=== PATIENT | female | born 1995 | race Caucasian/White ===

== ENCOUNTER → 2023-01-13 12:47 | Outpatient (BNVA) | payer OTHER, SELFPAY | PROVIDERS: Visit Provider Physician Assistant Medical | DX: S63.501A Unspecified sprain of right wrist, initial encounter (principal); X50.0XXA Overexertion from strenuous movement or load, initial encounter | CPT/HCPCS: 73110; 73130; 99203 ==

== ENCOUNTER → 2023-10-04 16:11 | Outpatient (BNVA) | payer OTHER, SELFPAY | PROVIDERS: Visit Provider Physician Assistant Medical | DX: S93.491A Sprain of other ligament of right ankle, initial encounter (principal); X50.1XXA Overexertion from prolonged static or awkward postures, initial encounter | CPT/HCPCS: 29515; 99203 ==

== ENCOUNTER → 2023-10-11 13:46 | Outpatient (BNVA) | payer OTHER, SELFPAY | PROVIDERS: Visit Provider Physician Assistant Medical | DX: S93.401D Sprain of unspecified ligament of right ankle, subsequent encounter (principal); X50.1XXD Overexertion from prolonged static or awkward postures, subsequent encounter | CPT/HCPCS: 99213 ==

== ENCOUNTER → 2024-11-21 12:12 | Outpatient (BNVA) | payer OTHER, SELFPAY | PROVIDERS: Visit Provider Physician Assistant Medical | DX: S06.0X0A Concussion without loss of consciousness, initial encounter (principal); S20.412A Abrasion of left back wall of thorax, initial encounter; S00.81XA Abrasion of other part of head, initial encounter; W50.0XXA Accidental hit or strike by another person, initial encounter; R11.2 Nausea with vomiting, unspecified; R51.9 Headache, unspecified; R42 Dizziness and giddiness; R53.83 Other fatigue | CPT/HCPCS: 70450; 99203 ==

== ENCOUNTER → 2024-11-23 10:51 | Outpatient (BNVA) | payer OTHER, SELFPAY | PROVIDERS: Visit Provider Physician Assistant Medical | DX: S06.0X0A Concussion without loss of consciousness, initial encounter (principal); S00.81XA Abrasion of other part of head, initial encounter; S20.412A Abrasion of left back wall of thorax, initial encounter; X50.0XXA Overexertion from strenuous movement or load, initial encounter | CPT/HCPCS: 99213 ==

== ENCOUNTER → 2024-11-28 13:35 | Outpatient (BNVA) | payer OTHER, SELFPAY | PROVIDERS: Visit Provider Physician Assistant Medical | DX: S06.0X0A Concussion without loss of consciousness, initial encounter (principal); S16.1XXA Strain of muscle, fascia and tendon at neck level, initial encounter; W50.0XXA Accidental hit or strike by another person, initial encounter | CPT/HCPCS: 99213 ==

== ENCOUNTER 2024-11-29 10:41 | Emergency (ER) | payer OTHER, SELFPAY ==
[2024-11-29 10:48] VITALS: BP 130/67; PULSE 52; RESP 18; TEMP 36.9; O2SAT 100; BMI 270.9
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
[2024-11-29 11:06] VITALS: BP 130/67; PULSE 52; RESP 18; TEMP 36.9; O2SAT 100
--- OUTSIDE RECORDS SUMMARY | 2024-11-29 12:33 | XMS_ITS | Encounter Summary ---
Author Organization [facility] Address [address] [place] [address] Care Team Providers Care Batch Plant Operator Name Role Phone Aditi Constantino DOCKETING SPECIALIST Primary Care Provider [phone] Encounter Details Date Type Department Care Team (Late st Contact Info) Description 02/07/2024 Scanned Document [facility] Department of Internal Medicine [address] [place] [phone] Aditi Constantino, TONIE [address] [place] [address] Social History Tobacco Use Types Packs/Day Years Used Date Smoking Tobacco: Never Assessed PHQ-2 Answer Date Recorded PHQ-2 Total Score 3 08/23/2023 Sex and Gender Information Value Date Recorded Sex Assigned at Female 08/26/2023 9:29 AM EDT Gender Identity Not on file Sexual Orientation Not on file documented as of this encounter Plan of Treatment Not on file documented as of this encounter Visit Diagnoses Not on filedocumented in this encounter Care Teams Batch Plant Operator Relationship Specialty Start Date End Date Aditi Constantino, TONIE [address] [place] [address] PCP - General 11/17/22 documented as of this encounter
--- OUTSIDE RECORDS SUMMARY | 2024-11-29 12:33 | XMS_ITS | Encounter Summary ---
Author Organization [facility] Address [address] [place] [address] Care Team Providers Care Field Research Assistant Name Role Phone Aditi Constantino APRN Primary Care Provider [phone] Reason for Visit * Reason Comments Medication Refill Encounter Details Date Type Department Care Team (Late st Contact Info) Description 11/15/2024 Refill [facility] Department of Internal Medicine [place] [address] [facility] [address] [place] [address] Aditi Constantino APRN [address] [place] [address] Moderate episode of recurrent major depressive disorder (HCC) Social History Tobacco Use Types Packs/Day Years Used Date Smoking Tobacco: Never Smokeless Tobacco: Never Alcohol Use Standard Drinks/Week Comments Never 0 (1 standard drink = 0.6 oz pur e alcohol) PHQ-2 Answer Date Recorded PHQ-2 Total Score 6 09/04/2024 Sex and Gender Information Value Date Recorded Sex Assigned at Female 08/26/2023 9:29 AM EDT Gender Identity Not on file Sexual Orientation Not on file documented as of this encounter Plan of Treatment Not on file documented as of this encounter Visit Diagnoses Diagnosis Moderate episode of recurrent major depressive disorder (HCC) documented in this encounter Care Teams Field Research Assistant Relationship Specialty Start Date End Date Aditi Constantino APRN [address] [place] [address] PCP - General 11/17/22 documented as of this encounter
--- OUTSIDE RECORDS SUMMARY | 2024-11-29 12:33 | XMS_ITS | Encounter Summary ---
Author Organization [facility] Address [address] [place] [address] Care Team Providers Care Club Manager Name Role Phone Aditi Constantino APRN Primary Care Provider [phone] Encounter Details Date Type Department Care Team (Late st Contact Info) Description 08/26/2023 10:29 AM EDT Hospital Encounter [facility] [address] [place] [phone] Dave Jordan MD [address] [place] [address] Social History Tobacco Use Types Packs/Day Years [...] 08/26/2023 10:40 AM EDT Lateral ankle swelling. ??No fracture or malalignment. Narrative 08/26/2023 10:40 AM EDT AP, lateral, and oblique views of the ankle were obtained. ??No prior studies for comparison. HISTORY: ??right ankle tenderness med/lat, hx of fracture FINDINGS: ??There is lateral swelling. ??No evidence of fracture. ??The mortise is intact. ??Soft tissues are unremarkable. Procedure Note Heath Lynn MD - 08/26/2023 AP, lateral, and oblique views of the ankle were obtained. No priorstudies for comparison. HISTORY: right ankle tenderness med/lat, hx of fracture FINDINGS: There is lateral swelling. No evidence of fracture. Themortise is intact. Soft tissues are unremarkable. IMPRESSION: Lateral ankle swelling. No fracture or malalignment. Omar MORALES DIAGNOSTIC IMAGI NG ORDERABLES documented in this encounter Visit Diagnoses Not on filedocumented in this encounter Care Teams Club Manager Relationship Specialty Start Date End Date Aditi Constantino, CHEMIST PHARMACEUTICAL [address] [place] [address] PCP - General 11/17/22 documented as of this encounter
--- OUTSIDE RECORDS SUMMARY | 2024-11-29 12:33 | XMS_ITS | Data Portability ---
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 Lab culture, urine 2019 020 [facility], [address] [place] [address], [id number] 0 08:50:41 bacterial vaginosis + vaginitis panel, vaginal 2019 020 [facility], [address] [place] [address], [id number] 0 12:40:35 CT + NG DNA, PCR, unspecified specimen 2019 020 [facility], [address] [place] [address], [id number] 0 15:37:37 toxicology screen, urine 2019 020 [email or web address] In-Office Order, Internal Use Only DO Not Attach Compendium DO Not Attach Compendium, Do Not Delete/merge, [id number] 11:13:51 toxicology screen, urine 2019 020 [email or web address] In-Office Order, Internal Use Only DO Not Attach Compendium DO Not Attach Compendium, Do Not Delete/merge, [id number] 0 14:03:57 Referral None recorded. Procedures None recorded. Surgeries None recorded. Imaging None recorded. Medication Orders None recorded. Patient TargetsNo targets recorded. Patient InstructionsNo instructions recorded. Reason for Referral None Reported. Results Created Date Observation Date Name Description Value Unit Range Abnormal Flag Note LastModifiedBy Organization Detail LastModifiedTime 01/16/2001/16/2020 toxic ology scree n, urine Marijuana (THC) negati ve Not Available In-Office Order Internal Use Only DO Not Attach Compendium DO Not Attach Compendium, Do Not Delete/merge, 01/16/2020 13:57:48 01/16/2001/16/2020 toxic ology scree n, urine Cocaine (GILLIAN 300) negati ve Not Available In-Office Order Internal Use Only DO Not Attach Compendium DO Not Attach Compendium, Do Not Delete/merge, 01/16/2020 13:57:48 01/16/2001/16/2020 toxic ology scree n, urine Opiates (MOP) negati ve Not Available In-Office Order Internal Use Only DO Not Attach Compendium DO Not Attach Compendium, Do Not Delete/merge, 01/16/2020 13:57:48 01/16/2001/16/2020 toxic ology scree n, urine Amphetamine (AMP) negati ve Not Available In-Office Order Internal Use Only DO Not Attach Compendium DO Not Attach Compendium, Do Not Delete/merge, 01/16/2020 13:57:48 01/16/20 20 01/16/2020 toxic ology scree n, urine Methamphetam ine (MET) negati ve Not Available In-Office Order Internal Use Only DO Not Attach Compendium DO Not Attach Compendium, Do Not Delete/merge, 01/16/2020 13:57:48 01/16/20 20 01/16/2020 toxic ology scree n, urine Barbiturates (BAR) negati ve Not Available In-Office Order Internal Use Only DO Not Attach Compendium DO Not Attach Compendium, Do Not Delete/merge, 01/16/2020 13:57:48 01/16/20 20 01/16/2020 toxic ology scree n, urine Benzodiazepi sonia (BZO) negati ve Not Available In-Office Order Internal Use Only DO Not Attach Compendium DO Not Attach Compendium, Do Not Delete/merge, [id number] 01/16/2020 13:57:48 01/16/20 20 01/16/2020 toxic ology scree n, urine Methylenedio xymethamphet amine (MDMA ? Ecstasy) negati ve Not Available In-Office Order Internal Use Only DO Not Attach Compendium DO Not Attach Compendium, Do Not Delete/merge, [id number] 01/16/2020 13:57:48 01/16/20 20 01/16/2020 toxic ology scree n, urine Methadone (MTD) negati ve Not Available In-Office Order Internal Use Only DO Not Attach Compendium DO Not Attach Compendium, Do Not Delete/merge, [id number] 01/16/2020 13:57:48 01/16/20 20 01/16/2020 toxic ology scree n, urine Oxycodone (OXY) negati ve Not Available In-Office Order Internal Use Only DO Not Attach Compendium DO Not Attach Compendium, Do Not Delete/merge, [id number] 01/16/2020 13:57:48 01/16/20 20 01/16/2020 toxic ology scree n, urine Phencyclidin e (PCP) negati ve Not Available In-Office Order Internal Use Only DO Not Attach Compendium DO Not Attach Compendium, Do Not Delete/merge, 01/16/2020 13:57:48 01/16/20 20 01/16/2020 toxic ology scree n, urine Tricyclic Antidepressa nts (TCA) negati ve Not Available In-Office Order Internal Use Only DO Not Attach Compendium DO Not Attach Compendium, Do Not Delete/merge, [id number] 01/16/2020 13:57:48 12/19/19 20 12/19/2019 toxic ology scree n, urine Marijuana (THC) negati ve Not Available In-Office Order Internal Use Only DO Not Attach Compendium DO Not Attach Compendium, Do Not Delete/merge, [id number] 12/19/2019 11:34:34 12/19/1912/19/2019 toxic ology scree n, urine Cocaine (GILLIAN 300) negati ve Not Available In-Office Order Internal Use Only DO Not Attach Compendium DO Not Attach Compendium, Do Not Delete/merge, 12/19/2019 11:34:34 12/19/19 20 12/19/2019 toxic ology scree n, urine Opiates (MOP) negati ve Not Available In-Office Order Internal Use Only DO Not Attach Compendium DO Not Attach Compendium, Do Not Delete/merge, 12/19/2019 11:34:34 12/19/19 20 12/19/2019 toxic ology scree n, urine Amphetamine (AMP) negati ve Not Available In-Office Order Internal Use Only DO Not Attach Compendium DO Not Attach Compendium, Do Not Delete/merge, 12/19/2019 11:34:34 12/19/1912/19/2019 toxic ology scree n, urine Methamphetam ine (MET) negati ve Not Available In-Office Order Internal Use Only DO Not Attach Compendium DO Not Attach Compendium, Do Not Delete/merge, 12/19/2019 11:34:34 12/19/1912/19/2019 toxic ology scree n, urine Barbiturates (BAR) negati ve Not Available In-Office Order Internal Use Only DO Not Attach Compendium DO Not Attach Compendium, Do Not Delete/merge, 12/19/2019 11:34:34 12/19/1912/19/2019 toxic ology scree n, urine Benzodiazepi sonia (BZO) negati ve Not Available In-Office Order Internal Use Only DO Not Attach Compendium DO Not Attach Compendium, Do Not Delete/merge, 12/19/2019 11:34:34 12/19/1912/19/2019 toxic ology scree n, urine Methylenedio xymethamphet amine (MDMA ? Ecstasy) negati ve Not Available In-Office Order Internal Use Only DO Not Attach Compendium DO Not Attach Compendium, Do Not Delete/merge, 12/19/2019 11:34:34 12/19/19 20 12/19/2019 toxic ology scree n, urine Methadone (MTD) negati ve Not Available In-Office Order Internal Use Only DO Not Attach Compendium DO Not Attach Compendium, Do Not Delete/merge, [id number] 12/19/2019 11:34:34 12/19/19 20 12/19/2019 toxic ology scree n, urine Oxycodone (OXY) negati ve Not Available In-Office Order Internal Use Only DO Not Attach Compendium DO Not Attach Compendium, Do Not Delete/merge, [id number] 12/19/2019 11:34:34 12/19/1912/19/2019 toxic ology scree n, urine Phencyclidin e (PCP) negati ve Not Available In-Office Order Internal Use Only DO Not Attach Compendium DO Not Attach Compendium, Do Not Delete/merge, [id number] 12/19/2019 11:34:34 12/19/1912/19/2019 toxic ology scree n, urine Tricyclic Antidepressa nts (TCA) negati ve Not Available In-Office Order Internal Use Only DO Not Attach Compendium DO Not Attach Compendium, Do Not Delete/merge, [id number] 12/19/2019 11:34:34 11/30/1912/04/2019 toxic ology scree n, urine Marijuana (THC) negati ve Not Available In-Office Order Internal Use Only DO Not Attach Compendium DO Not Attach Compendium, Do Not Delete/merge, [id number] 11/30/2019 09:56:50 11/30/1912/04/2019 toxic ology scree n, urine Cocaine (GILLIAN 300) negati ve Not Available In-Office Order Internal Use Only DO Not Attach Compendium DO Not Attach Compendium, Do Not Delete/merge, [id number] 11/30/2019 09:56:50 11/30/1912/04/2019 toxic ology scree n, urine Opiates (MOP) negati ve Not Available In-Office Order Internal Use Only DO Not Attach Compendium DO Not Attach Compendium, Do Not Delete/merge, 11/30/2019 09:56:50 11/30/1912/04/2019 toxic ology scree n, urine Amphetamine (AMP) negati ve Not Available In-Office Order Internal Use Only DO Not Attach Compendium DO Not Attach Compendium, Do Not Delete/merge, 11/30/2019 09:56:50 11/30/1912/04/2019 toxic ology scree n, urine Methamphetam ine (MET) negati ve Not Available In-Office Order Internal Use Only DO Not Attach Compendium DO Not Attach Compendium, Do Not Delete/merge, 11/30/2019 09:56:50 11/30/1912/04/2019 toxic ology scree n, urine Barbiturates (BAR) negati ve Not Available In-Office Order Internal Use Only DO Not Attach Compendium DO Not Attach Compendium, Do Not Delete/merge, 11/30/2019 09:56:50 11/30/1912/04/2019 toxic ology scree n, urine Benzodiazepi sonia (BZO) negati ve Not Available In-Office Order Internal Use Only DO Not Attach Compendium DO Not Attach Compendium, Do Not Delete/merge, 11/30/2019 09:56:50 11/30/1912/04/2019 toxic ology scree n, urine Methylenedio xymethamphet amine (MDMA ? Ecstasy) negati ve Not Available In-Office Order Internal Use Only DO Not Attach Compendium DO Not Attach Compendium, Do Not Delete/merge, 11/30/2019 09:56:50 11/30/1912/04/2019 toxic ology scree n, urine Methadone (MTD) negati ve Not Available In-Office Order Internal Use Only DO Not Attach Compendium DO Not Attach Compendium, Do Not Delete/merge, 11/30/2019 09:56:50 11/30/1912/04/2019 toxic ology scree n, urine Oxycodone (OXY) negati ve Not Available In-Office Order Internal Use Only DO Not Attach Compendium DO Not Attach Compendium, Do Not Delete/merge, 11/30/2019 09:56:50 11/30/1912/04/2019 toxic ology scree n, urine Phencyclidin e (PCP) negati ve Not Available In-Office Order Internal Use Only DO Not Attach Compendium DO Not Attach Compendium, Do Not Delete/merge, [id number] 11/30/2019 09:56:50 11/30/19 20 12/04/2019 toxic ology scree n, urine Tricyclic Antidepressa nts (TCA) negati ve Not Available In-Office Order Internal Use Only DO Not Attach Compendium DO Not Attach Compendium, Do Not Delete/merge, [id number] 11/30/2019 09:56:50 01/02/20 20 01/03/2020 [place] [address] 9 alcohol metabolites NEGATI VE NG/mL <500 normal See Note 1 Not Available [facility] [address], [address], 01/03/2020 13:49:39 01/02/20 20 01/03/2020 cp 15929 9 comment See Note 2 Not Available [facility] [address], [address], 01/03/2020 13:49:39 01/02/20 20 01/03/2020 cp 67373 9 amphetamines NEGATI VE NG/mL <500 normal Not Available [facility] [address], [address], 01/03/2020 13:49:39 01/02/20 20 01/03/2020 cp 10307 9 barbiturates NEGATI VE NG/mL <300 normal Not Available [facility] [address], [address], 01/03/2020 13:49:39 01/02/20 20 01/03/2020 cp 10354 9 benzodiazepi sonia NEGATI VE NG/mL <100 normal Not Available [facility] [address], [address], 01/03/2020 13:49:39 01/02/20 20 01/03/2020 cp 27121 9 cocaine metabolite NEGATI VE NG/mL <150 normal Not Available [facility] [place] [facility] [address], [place], [address], 01/03/2020 13:49:39 01/02/20 20 01/03/2020 cp 19438 9 marijuana metabolite 20 NEGATI VE NG/mL <20 normal Not Available [facility] [place] [facility] [address], [place], [address], 01/03/2020 13:49:39 01/02/20 20 01/03/2020 cp 02411 9 methadone metabolite NEGATI VE NG/mL <100 normal Not Available [facility] [place] [facility] [address], [place], [address], 01/03/2020 13:49:39 01/02/20 20 01/03/2020 cp 84617 9 opiates POSITI VE NG/mL <100 abnormal Not Available [facility] [place] [facility] [address], [place], [address], 01/03/2020 13:49:39 01/02/20 20 01/03/2020 cp 21274 9 oxycodone NEGATI VE NG/mL <100 normal Not Available [facility] [place] [facility] [address], [place], [address], 01/03/2020 13:49:39 01/02/20 20 01/03/2020 cp 59336 9 phencyclidin e NEGATI VE NG/mL <25 normal Not Available [facility] [place] [facility] [address], [place], [address], 01/03/2020 13:49:39 01/02/20 20 01/03/2020 cp 55284 9 comment See Note 3 Not Available [facility] [place] [facility] [address], [place], [address], 01/03/2020 13:49:39 01/02/20 20 01/03/2020 cp 91067 9 propoxyphene NEGATI VE NG/mL <300 normal Not Available [facility] [place] [facility] [address], [place], [address], 01/03/2020 13:49:39 01/02/20 20 01/03/2020 cp 58417 9 comment See Note 2 Note 1 This test was devel oped and its andrea tical perfo rmanc e jannette cteri stics have been deter mined by [facility]. It has not been clear ed or appro vidal by the FDA. This assay has been valid ated pursu ant to the CLIA regul ation s and is used for clini flor purpo ses. Note 2 This drug testi ng is for medic al treat ment only. Andrea sis was perfo rmed as non-f orens ic testi ng and these resul ts shoul d be used only by healt hcare provi ders to rende r diagn osis or treat ment, or to monit or progr ess of medic al condi tions . For zeb tance with inter preti ng these drug resul ts, pleas e conta ct a [facility] Toxic ology Speci alist : -R X TOX [phone] ), M-F, 8am-6 pm EST. Note 3 This drug testi ng is for medic al treat ment only. The resul ts are presu mptiv e; based only on scree isaiah metho ds, and they have not been confi rmed by a defin itive metho d. Andrea sis was perfo rmed as non-f orens ic testi ng and these resul ts shoul d be used only by healt hcare provi ders to rende r diagn osis or treat ment, or to monit or progr ess of medic al condi tions . For zeb tance with inter preti ng these drug resul ts, pleas e conta ct a [facility] Toxic ology Speci alist : --R X TOX [phone] ), M-F, 8am-6 pm EST. Not Available [facility] [place] [facility] [address], [place], [place], [address], 01/03/2020 13:49:39 01/02/20 20 01/02/2020 toxic ology scree n, urine Marijuana (THC) negati ve Not Available In-Office Order Internal Use Only DO Not Attach Compendium DO Not Attach Compendium, Do Not Delete/merge, 01/02/2020 07:54:06 01/02/20 20 01/02/2020 toxic ology scree n, urine Cocaine (GILLIAN 300) negati ve Not Available In-Office Order Internal Use Only DO Not Attach Compendium DO Not Attach Compendium, Do Not Delete/merge, 01/02/2020 07:54:06 01/02/20 20 01/02/2020 toxic ology scree n, urine Opiates (MOP) positi ve Not Available In-Office Order Internal Use Only DO Not Attach Compendium DO Not Attach Compendium, Do Not Delete/merge, 01/02/2020 07:54:06 01/02/20 20 01/02/2020 toxic ology scree n, urine Amphetamine (AMP) negati ve Not Available In-Office Order Internal Use Only DO Not Attach Compendium DO Not Attach Compendium, Do Not Delete/merge, 01/02/2020 07:54:06 01/02/20 20 01/02/2020 toxic ology scree n, urine Methamphetam ine (MET) negati ve Not Available In-Office Order Internal Use Only DO Not Attach Compendium DO Not Attach Compendium, Do Not Delete/merge, 01/02/2020 07:54:06 01/02/20 20 01/02/2020 toxic ology scree n, urine Barbiturates (BAR) negati ve Not Available In-Office Order Internal Use Only DO Not Attach Compendium DO Not Attach Compendium, Do Not Delete/merge, 01/02/2020 07:54:06 01/02/20 20 01/02/2020 toxic ology scree n, urine Benzodiazepi sonia (BZO) negati ve Not Available In-Office Order Internal Use Only DO Not Attach Compendium DO Not Attach Compendium, Do Not Delete/merge, [id number] 01/02/2020 07:54:06 01/02/20 20 01/02/2020 toxic ology scree n, urine Methylenedio xymethamphet amine (MDMA ? Ecstasy) negati ve Not Available In-Office Order Internal Use Only DO Not Attach Compendium DO Not Attach Compendium, Do Not Delete/merge, [id number] 01/02/2020 07:54:06 01/02/20 20 01/02/2020 toxic ology scree n, urine Methadone (MTD) negati ve Not Available In-Office Order Internal Use Only DO Not Attach Compendium DO Not Attach Compendium, Do Not Delete/merge, [id number] 01/02/2020 07:54:06 01/02/20 20 01/02/2020 toxic ology scree n, urine Oxycodone (OXY) negati ve Not Available In-Office Order Internal Use Only DO Not Attach Compendium DO Not Attach Compendium, Do Not Delete/merge, [id number] 01/02/2020 07:54:06 01/02/20 20 01/02/2020 toxic ology scree n, urine Phencyclidin e (PCP) negati ve Not Available In-Office Order Internal Use Only DO Not Attach Compendium DO Not Attach Compendium, Do Not Delete/merge, [id number] 01/02/2020 07:54:06 01/02/20 20 01/02/2020 toxic ology scree n, urine Tricyclic Antidepressa nts (TCA) negati ve Not Available In-Office Order Internal Use Only DO Not Attach Compendium DO Not Attach Compendium, Do Not Delete/merge, [id number] 01/02/2020 07:54:06 01/03/20 20 01/03/2020 strep tococ cus group B DNA group B strep DNA PCR Negati ve negati ve Not Available [facility] [address] [place], [address] 01/04/2020 11:09:43 01/03/20 20 01/03/2020 strep tococ cus group B DNA group B strep source Vagina l CDC recom mends colle ction of a vagin al/re ctal speci men for optim al detec tion of Group B Strep tococ cus virgil ers. Not Available [facility] [address] [place], [address] 01/04/2020 11:09:43 01/04/20 20 01/04/2020 bacte rial vagin osis + vagin itis panel , vagin al gardnerella Negati ve negati ve Not Available [facility] [address] [place] [address], [id number] 01/05/2020 12:40:35 01/04/20 20 01/04/2020 bacte rial vagin osis + vagin itis panel , vagin al trichomonas Negati ve negati ve Not Available [facility] [address] [place] [address], [id number] 01/05/2020 12:40:35 01/04/20 20 01/04/2020 bacte rial vagin osis + vagin itis panel , vagin al rony Negati ve negati ve Not Available [facility] [address] [place] [address], [address] 01/05/2020 12:40:35 01/04/20 20 01/04/2020 CT + NG DNA, PCR, unspe cifie d speci men neisseria gonorrhoeae RNA, tma Negati ve negati ve Not Available [facility] [address] [place] [address], [id number] 01/05/2020 15:37:37 01/04/20 20 01/04/2020 CT + NG DNA, PCR, unspe cifie d speci men chlamydia trachomatis RNA, tma Negati ve negati ve Not Available [facility] [address] [place], [address] 01/05/2020 15:37:37 01/04/20 20 01/04/2020 cultu re, urine urine source URINE, RANDOM Not Available [facility] [address] [place], [address] 01/06/2020 08:50:41 01/04/20 20 01/04/2020 cultu re, urine micro culture result 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 No furth er ident ifica tion will be perfo rmed. Not Available [facility] [address] [place], [address] 01/06/2020 08:50:41 01/09/20 20 01/09/2020 toxic ology scree n, urine Marijuana (THC) negati ve Not Available In-Office Order Internal Use Only DO Not Attach Compendium DO Not Attach Compendium, Do Not Delete/merge, [id number] 01/09/2020 10:38:01/09/20 20 01/09/2020 toxic ology scree n, urine Cocaine (GILLIAN 300) negati ve Not Available In-Office Order Internal Use Only DO Not Attach Compendium DO Not Attach Compendium, Do Not Delete/merge, 01/09/2020 10:38:01/09/20 20 01/09/2020 toxic ology scree n, urine Opiates (MOP) negati ve Not Available In-Office Order Internal Use Only DO Not Attach Compendium DO Not Attach Compendium, Do Not Delete/merge, 01/09/2020 10:38:01 01/09/20 20 01/09/2020 toxic ology scree n, urine Amphetamine (AMP) negati ve Not Available In-Office Order Internal Use Only DO Not Attach Compendium DO Not Attach Compendium, Do Not Delete/merge, 01/09/2020 10:38:01 01/09/20 20 01/09/2020 toxic ology scree n, urine Methamphetam ine (MET) negati ve Not Available In-Office Order Internal Use Only DO Not Attach Compendium DO Not Attach Compendium, Do Not Delete/merge, 01/09/2020 10:38:01 01/09/20 20 01/09/2020 toxic ology scree n, urine Barbiturates (BAR) negati ve Not Available In-Office Order Internal Use Only DO Not Attach Compendium DO Not Attach Compendium, Do Not Delete/merge, 01/09/2020 10:38:01 01/09/20 20 01/09/2020 toxic ology scree n, urine Benzodiazepi sonia (BZO) negati ve Not Available In-Office Order Internal Use Only DO Not Attach Compendium DO Not Attach Compendium, Do Not Delete/merge, [id number] 01/09/2020 10:38:01 01/09/20 20 01/09/2020 toxic ology scree n, urine Methylenedio xymethamphet amine (MDMA ? Ecstasy) negati ve Not Available In-Office Order Internal Use Only DO Not Attach Compendium DO Not Attach Compendium, Do Not Delete/merge, [id number] 01/09/2020 10:38:01 01/09/20 20 01/09/2020 toxic ology scree n, urine Methadone (MTD) negati ve Not Available In-Office Order Internal Use Only DO Not Attach Compendium DO Not Attach Compendium, Do Not Delete/merge, [id number] 01/09/2020 10:38:01 01/09/20 20 01/09/2020 toxic ology scree n, urine Oxycodone (OXY) negati ve Not Available In-Office Order Internal Use Only DO Not Attach Compendium DO Not Attach Compendium, Do Not Delete/merge, [id number] 01/09/2020 10:38:01 01/09/20 20 01/09/2020 toxic ology scree n, urine Phencyclidin e (PCP) negati ve Not Available In-Office Order Internal Use Only DO Not Attach Compendium DO Not Attach Compendium, Do Not Delete/merge, [id number] 01/09/2020 10:38:01 01/09/20 20 01/09/2020 toxic ology scree n, urine Tricyclic Antidepressa nts (TCA) negati ve Not Available In-Office Order Internal Use Only DO Not Attach Compendium DO Not Attach Compendium, Do Not Delete/merge, [id number] 01/09/2020 10:38:01 05/24/20 20 05/24/2020 blood group antib greta scree n, serum or plasm a bb patient history check Blood bank CT histor y review ed. Not Available [facility] [address] [place], [address] 05/25/2020 11:03:46 05/24/20 20 05/24/2020 blood group antib greta scree n, serum or plasm a blood type interpretati on A Not Available [facility] [address] [place], [address] 05/25/2020 11:03:46 05/24/20 20 05/24/2020 blood group antib greta scree n, serum or plasm a Rh interpretati on Positi ve Not Available [facility] [address] [place] [address], [address] 05/25/2020 11:03:46 05/24/20 20 05/24/2020 blood group antib greta scree n, serum or plasm a antibody screen interpretati on (T and S) Negati ve negati ve Not Available [address], [address] 05/25/2020 11:03:46 05/24/20 20 05/24/2020 beta- HCG, quant itati ve, serum or plasm a beta HCG, quantitative 519747 mIU/m L <5 high Not Available [facility] [address] [place] [address], [id number] 05/25/2020 11:03:48 08/03/20 22 08/03/2022 BETA HCG, QUANT ITATI VE beta HCG, quantitative 845 mIU/m L <5 high Not Available [facility] [address] [place] [address], 08/04/2022 14:55:58 08/03/20 22 08/03/2022 BB TYPE bb patient history check No previo us WHCT histor y. Not Available [facility] [address] [place] [address], [id number] 08/04/2022 14:56:01 08/03/20 22 08/03/2022 BB TYPE group interpretati on A Pos Not Available [facility] [address] [place], [address] 08/04/2022 14:56:01 08/03/20 22 08/03/2022 BB ANTIB GRETA SCREE N bb patient history check No previo us WHCT histor y. Not Available [facility] [address] [place], [address] 08/04/2022 14:56:02 08/03/20 22 08/03/2022 BB ANTIB GRETA SCREE N antibody screen interpretati on Negati ve negati ve Not Available [facility] [address] [place] [address], [address] 08/04/2022 14:56:02 01/04/20 20 01/04/2020 US, obste tric, follo w-up [place] [id number] [facility] [address] [place], [address], 01/05/2020 08:50:15 01/05/20 20 01/05/2020 US, obste tric, mater nal evalu ation + anato my No observ ation record ed. [email or web address] [address], [address], 01/07/2020 20:45:25 01/08/20 20 01/08/2020 US, obste tric, mater nal evalu ation + anato my No observ ation record ed. [email or web address], [address], 01/08/2020 13:09:22 01/08/20 20 01/08/2020 non-s tress test No observ ation record ed. [email or web address] (Department Of Radiology/Miya ging) [address] [place] [address], [address], 01/08/2020 15:26:27 01/09/20 20 01/08/2020 US, obste tric, amnio tic fluid index No observ ation record ed. [email or web address] [facility] [address] [place] [address], [address], 01/10/2020 08:32:48 01/09/20 20 01/08/2020 US, obste tric, amnio tic fluid index No observ ation record ed. [email or web address] Not Available 2019 08:34:44 01/11/20 20 01/11/2020 US, obste tric, follo w-up No observ ation record ed. [email or web address] [address], [address], 01/11/2020 17:53:31 01/15/20 20 01/15/2020 non-s tress test No observ ation record ed. [address], [address], 01/16/2020 09:33:20 01/18/20 20 01/18/2020 non-s tress test No observ ation record ed. [address], [address], 01/18/2020 15:41:43 01/22/20 20 01/22/2020 non-s tress test No observ ation record ed. [address], [address], 01/23/2020 12:18:42 05/31/20 20 05/31/2020 US, obste tric, follo w-up No observ ation record ed. [email or web address] [facility] [address], [place], [address], 06/04/2020 19:59:56 Result Notes None recorded. Problems Name Problem SNOMED Code Status Onset Date Resolution Date Notes Provider Name and Address Organization Details Recorded Time Asthma 621877317 Active 2018 sport induced asthma Jacquelyn bradley, [place] - [facility] 9 09:47:16 Vesicour eteric reflux 235896338 Active 2018 Jacquelyn bradley, [place] - [facility] 9 09:47:36 History of cannabis abuse 86368074077 9108 Completed Pt admits at IOB that she was smoking MJ prior to pregnanc y to assist w/ sleep. Pt aware of contrain dication s to use in pregnanc y, aware of plan for serial qtox. Pt states she is no longer smoking & does not intend further use. Pt denies use of any other substanc es. Qtox from IOB negative for propoxyp hene, EtOH, & all substanc es except marijuan a. Pt to have serial qtox over pregnanc y. Provider to review w/ pt at 2nd OB visit. (discuss ed probable serial qtox at IOB). CSD 07/26/19: reviewed with patient at visit today, she states she has stopped using MJ entirely , aware we will be checking serial QTOX. SCP . 07/26/19: QTOX negative other than continue d + for allyson betancourt, review next visit. SCP Jaclyn bradley, [place] - [facility] 0 11:57:13 History of kidney disease [id number] Completed Pt w/ h/o VUR, tx'd at 3 yo w/ ?bilater al ureteral reimplan tation at [facility] [place] [place]. Pt reports she has frequent UTI's/py lissy related to this. COnsider serial UCx vs other prophyla xis prn, will review w/ MFM. Jaclyn bradley, [place] - [facility] 0 11:57:13 Marginal insertio n of umbilica l cord [id number] Completed Noted with NT USN, patient has level II USN schedule d at [facility]. SCP: normal CI on USN 09/2019 Nl placenta l CI describe d on tri USN, [facility]. CSD Jaclyn bradley, [place] - [facility] 0 11:57:13 Oligohyd ramnios without rupture of membrane s [id number] Completed Seen at [facility] on 01/05 with c/o leaking. No rupture on multiple exams. ORESTES 4 and then 8 when MFM scanned her after PO fluid intake. Discharg ed from home. Will need follow up USN in office first week of JANUARY. TBF 01/08/20: Repeat USN shows ORESTES 5.6 cm. Reactive NST. TBF 01/11/20: patient again evaluate d at [facility] given concern for ? LOF and recently being followed for borderli ne (low normal) ORESTES. Joeemilie arturo, has never been official ly oligo with a formal USN. Speculum exam again negative for ROM. Reactive NTS. USN today by Dr. King with ORESTES of 8cm. Patient reassure d by MFM and by myself that clinical picture not c/w ROM or oligo at this time and no indicati on for delivery at this time. Will plan for NST/ORESTES on Wednesday01/15/20; even if normal fluid at that time will likely plan to continue weekly NST/ORESTES until delivery for patient reassura nce. SCP 3/5: ORESTES 7.8, repeat USN PRN Jaclyn Calvert null, [place] - [facility] 0 11:57:13 Problem Notes None recorded. Procedures Surgical History Date Name Laterality Status Provider Name and Address Organization Details Recorded Time 0 [id number] completed Jaclyn Shaikhalison [place] - [facility] 06/03/2020 13:24:12 9 [id number]-AAR completed Jaclyn Shaikhalison [place] - [facility] 11/06/2019 16:40:09 Unlisted px urinary system completed ROBIN GLORIA MD [address] [place] [address], [address] Floor, [place], [address], [place] - [facility] 06/28/2019 17:58:10 Imaging Results Imaging Date Name Status LastModified by Organiz ation Details LastModified Time 01/04/2020 US, obstetric, follow-up completed [address] [facility] [address] [place], [address], 01/05/2020 08:50:15 01/05/2020 US, obstetric, maternal evaluation + anatomy completed [email or web address], [address], 01/07/2020 20:45:25 01/08/2020 US, obstetric, maternal evaluation + anatomy completed [address], [address], 01/08/2020 13:09:22 01/08/2020 non-stress test completed [address] (Department Of Radiology/Wayne alex) [address] [place] [address], [address], 01/08/2020 15:26:27 01/08/2020 US, obstetric, amniotic fluid index completed [email or web address] [facility] [address] [place] [address], [address], 01/10/2020 08:32:48 01/08/2020 US, obstetric, amniotic fluid index completed [email or web address] Information not available 01/10/2020 08:34:44 01/11/2020 US, obstetric, follow-up completed [address], [address], 01/11/2020 17:53:31 01/15/2020 non-stress test completed [address], [address], 01/16/2020 09:33:20 01/18/2020 non-stress test completed [address], [address], 01/18/2020 15:41:43 01/22/2020 non-stress test completed [address], [address], 01/23/2020 12:18:42 05/31/2020 US, obstetric, follow-up completed [email or web address] [facility] [address], [place], [address], 06/04/2020 19:59:56 Procedure Notes None recorded. Medical Equipment None Reported. Allergies No known drug allergies Medications Name Sig Start Date Stop Date Status Note LastModified by Organization Details LastModified Time acetaminoph en 325 mg tablet Take 2 tablets every 6 hours by oral route. 01/30 completed Not Available Not Available Not Available fluconazole 150 mg tablet take 1 tablet po then repeat in 72 hrs 10/26 completed Not Available Not Available Not Available Cleocin 100 mg vaginal suppository Insert 1 supposito ry every day by vaginal route for 3 days. 10/26 completed Not Available Not Available Not Available Tamiflu 75 mg capsule 06/28 completed Not Available Not Available Not Available ondansetron 8 mg disintegrat ing tablet Place 1 tablet every 8 hours by transling ual route as needed. 11/06 completed Not Available Not Available Not Available ibuprofen 600 mg tablet Take 1 tablet 3 times a day by oral route. 01/30 completed Not Available Not Available Not Available ondansetron 4 mg disintegrat ing tablet 06/28 completed Not Available Not Available Not Available Diclegis 10 mg-10 mg tablet,rosemary yed release 2 tabs po at hs, if still nauseous day 3 add 1 tab in morning, if still symptomat ic day 4 add 1 tab in afternoon for a total of 4/ day 11/06 completed Not Available Not Available Not Available Vitamins Plus Low Iron 27 mg iron-1 mg tablet active Not Available Not Available Not Available Larissia 0.1 mg-20 mcg tablet 06/28 completed Not Available Not Available Not Available Vitals Date Recorded Body height Provider Name an d Address Organization Details Last Updated DateTime 01/04/2020 161.92 cm Lois Arenas [facility] 01/04/2020 11:46:29 Date Recorded Body mass index (BMI) Body weight Provider Name and Address Organization Details Last Updated DateTime 01/04/2020 33.9 kg/m2 32484.55353 g Lois Arenas [facility] 01/04/2020 11:51:10 Date Recorded Body weight Systolic blood pressure Diastolic blood pressure Provider Name and Address Organization Details Last Updated DateTime 01/09/2020 51861.2892 6 g 122 mm[Hg] 76 mm[Hg] Melia Steiner [facility] 01/09/2020 10:51:19 Date Recorded Body height Provider Name an d Address Organization Details Last Updated DateTime 01/16/2020 161.93 cm Radha Zendejas [facility] 01/16/2020 13:45:04 Date Recorded Body mass index (BMI) Body weight Provider Name and Address Organization Details Last Updated DateTime 01/16/2020 34.9 kg/m2 15080.41553 g Radha Zendejas [facility] 01/16/2020 13:46:09 Date Recorded Body height Provider Name an d Address Organization Details Last Updated DateTime 01/31/2020 161.93 cm Jaclyn Calvert [facility] 01/31/2020 11:54:43 Date Recorded Body mass index (BMI) Body weight Provider Name and Address Organization Details Last Updated DateTime 01/31/2020 33.6 kg/m2 64929.77021 g Jaclyn Shaikhalison [facility] 01/31/2020 11:57:13 Date Recorded Body height Provider Name an d Address Organization Details Last Updated DateTime 06/03/2020 161.93 cm Jaclyn Shaikhalison [facility] 06/03/2020 13:21:16 Date Recorded Body mass index (BMI) Body weight Provider Name and Address Organization Details Last Updated DateTime 06/03/2020 33.7 kg/m2 84857.51 g Jaclyn Shaikhalison [facility] 06/03/2020 13:21:41 Date Recorded Systolic blood pressure Diastolic blood pressure Provider Name and Address Organization Details Last Updated DateTime 01/04/2020 136 mm[Hg] 80 mm[Hg] Lois Dagoberto [facility] 01/04/2020 11:50:02 Date Recorded Systolic blood pressure Diastolic blood pressure Provider Name and Address Organization Details Last Updated DateTime 01/16/2020 118 mm[Hg] 72 mm[Hg] Radha Zendejas [facility] 01/16/2020 13:45:02 Date Recorded Systolic blood pressure Diastolic blood pressure Provider Name and Address Organization Details Last Updated DateTime 01/31/2020 126 mm[Hg] 84 mm[Hg] Jaclyn Enrike [facility] 01/31/2020 11:55:38 Date Recorded Systolic blood pressure Diastolic blood pressure Provider Name and Address Organization Details Last Updated DateTime 06/03/2020 120 mm[Hg] 78 mm[Hg] Jaclyn Enrike [facility] 06/03/2020 13:22:30 Social History Question Answer Notes LastModified by Organizat ion Details LastModified Time Tobacco Smoking Status Never Smoker Jacquelyn bradley [facility] 06/28/2019 09:48:17 What Is Your Level Of Alcohol Consumption? None Information not available 11/06/2019 Do You Reside In Or Have You Traveled To An Area Where Ebola Virus Transmission Is Active? No Information not available 11/06/2019 Does Your Partner Physically Hurt You Or Threaten To Hurt You? No [email or web address] Information not available 06/28/2019 Has Your Partner Forced You To Have Sex Or Perform Sex Acts When You Did Not Want To? No Information not available 06/28/2019 Does Your Partner Insult, Scream At Or Talk Down To You? No [email or web address] Information not available 06/28/2019 Does Your Partner Control You Or Any Part Of Your Life? No [email or web address] Information not available 06/28/2019 Are You Afraid Of Your Partner? No [email or web address] Information not available 06/28/2019 Drug Use? No Occ MJ Information no t available 06/03/2020 Do You Feel Safe At Home? Yes [email or web address] Information not available 06/28/2019 Have You Recently Traveled Abroad? No Information not available 12/26/2019 Do You Have Symptoms Associated With Zika Virus (fever, Rash, Joint Pain, Or Conjunctivitis)? No Information not available 11/06/2019 Have You Recently (within The Last 12 Weeks, Or During A Current ) Traveled To Or Lived In A Zika-affected Area? No [email or web address] Information not available 06/28/2019 Sex: Unknown Functional Status Question Answer Note LastModified by Organizat ion Details LastModified Time What is your exercise level? Occasional Information not available 11/06/2019 Mental Status None recorded. Family History Relationship Description Onset Age of this Age Resolved Age Notes LastModified by Organization Details LastModified Time Maternal Aunt Malignant tumor of breast M G Aunt [email or web address] Not available 06/28/2019 17:56:11 Maternal Grandfather Myocardial infarction [email or web address] Not available 06/09 17:56:23 Maternal Grandfather Hypertensive disorder [email or web address] Not available 06/28 17:56:31 Maternal Grandfather Diabetes mellitus [email or web address] Not available 06/28 17:56:38 Medical History Condition Response Other N *No Diseases or Conditions N Blood clots N Breast Cancer N Benign breast disease N Colon cancer N Lung Disease N Depression Y Defects or Inherited Disease N Anesthesia Complications N Headaches/Migraines N Have you ever been on isolation N Anxiety Disorder Y Arthritis N HSV N Infertility N Interstitial Cystitis N Abnormal pap N Acid Reflux (GERD) N Cancer N Stroke N Endometriosis N Fibromyalgia N Spina Bifida N HIV N Heart Problems N Sexual Dysfunction N Autoimmune disorder N Thyroid Problems N Kidney or Bladder Problems Y GI Problems N Eating Disorder N Anemia N Multiple Sclerosis N Psychiatric Illness N Diabetes N Ovarian Cancer N Blood Transfusions N Bladder disease N History of MRSA N Abnormal Uterine Bleeding N Hyperlipidemia N BrCa positive N Abuse/Domestic Violence N Diverticulitis N Asthma Y Hepatitis N Hypertension N Osteoporosis N Thrombophilias N Gynecological History Statement/Question Response Abnormal Pap N Benign Breast Disease N Infertility N Breast Biopsy N Date of LMP 03/31/2020 Breast Ultrasound N IPV Screen Done 06/03/2020 STIs/STDs N Sexual Orientation heterosexual Endometriosis N PID N Fibroids N Cervical Cancer N History of Endometrial Biopsy? N Uterine Cancer N Current Control Method Ovarian Cancer N Breast Cancer N Sexually Active? Y Sexual Problems? N Abnormal Uterine Bleeding Y Obstetrics History GPAL:G 3 P 1 0 1 1 Type Value Full Term 1 Induced 1 Living 1 Total 3 Immunizations Vaccine Type Date Status Note Provider Nam e and Address Organization Details Recorded Time Influenza, split virus, quadrivalent, PF 09/29/2019 completed Not Available [facility] 0 02:19:44 Tdap 12/04/2019 completed Maryan bradley, [place] - [facility] 12/04/2019 13:23:08 Past Encounters Encounter ID Performer Location Encounter Start Date Encounter Closed Date Diagnosis/Indication Diagnosis SNOMED-CT Code Diagnosis ICD10 Code Diagnosis Note [id number] ROBIN GLORIA MD [facility],[address] [place] [address] 06/28/2019 09:38:43 06/30/2019 08:53:33 Routine care 180236324 Z34.91 Z34.01 Z34.81 Has been having nausea and vomiting relieved by Diclegis use, no c/o PARRA/VB/Kyler a or /UTI sxs. Last pap was ~1 year ago. No hx of chicken pox, will check varicella. Plans Carrier screen/NIP S/NT/AFP. [employer] 24 yo presents w/ FOB for IOB. Pt w/ LMP unknown, had recent 1st tri USN at [facility] demonstrat ing viable IUP at 7 1/7 wks & establishi ng EDC= 0. Pt has had sx's of N/V since onset of , trying diet changes & use of Diclegis w/ some relief of sx's. Pt denies VB or current /UTI sx's except has noted some increased quantity of D/C. Pt reports no h/o EtOH or cigarette use. Pt states she does not use any street drugs except had been smoking marijuana to help her sleep prior to . Reviewed office policy. Reviewed antepartum testing w/ genetic carrier screening, cfDNA testing, & NT USN--pt wishes to do all. Reviewed travel history--p t & FOB deny recent travel (less than 1 yr ago) or plans for travel to areas w/ high risk of exposure to Zika; reviewed risks of Zika virus exposure, transmissi on in . Reviewed use of bug sprays w/ DEET. RTO 4 wks Gestation period, 9 weeks 885608 Z3A.09 Vaginitis 45573740 N76.0 [id number] YESICA CARIAS DO G5 [address] [place] [address] 07/26/2019 09:16:24 07/26/2019 15:55:15 Routine care 228106348 Z34.91 Doing well, no complaints . Reviewed all labs, USNs to date. Patient aware of + MJ with QTOX, negative Panorama and Horizon results, normal NT USN other than marginal cord insertion noted with this USN. Has level II USN scheduled at [facility] in August 2019. Lab slip given today for MSAFP, aware she needs to wait until 16 weeks. No recent or upcoming travel. [id number] ANGÉLICA FISHER MD [facility] [address] [place] [address] 09/29/2019 12:57:10 10/04/2019 08:01:01 Routine care 712761016 Z34.92 Gestation period, 22 weeks 17025053 Z3A.22 History of cannabis abuse 4704666745 [address] F12.10 Active or passive immunization 792864880 Z23 [id number] ROBIN GLORIA MD WH[facility] [address] [place] [address] 11/06/2019 16:19:15 11/13/2019 14:09:13 Routine care 105676136 Z34.91 Z34.01 Z34.81 Headaches: No Nausea: No Vomiting: No movement: Yes Contractio ns: No Urine sent for qtox. Pt notes + GFM & denies pain/ctxns . Pt denies current /UTI sx's. Pt does state she had scant pink-tinge d staining on ?underwear when in [place] on 11/01/19, no prior intercours e or exam. Pt has not had recurrence of sx's. Pt advised to observe, contact office if recurs. Reviewed results to date, including nl 3rd tri labs. Reviewed tdap, pt had last visit per her report (no documentat ion of this in chart)--re viewed indication s for close family members & FOB to have booster as well. PLEASE REVIEW TDAP W/ PT NEXT VISIT, NOT CLEAR SHE ACTUALLY RECEIVED THIS AT LAST VISIT. RTO 4 wks Gestation period, 28 weeks 68801399 Z3A.28 [id number] CASI ENCISO, DO G[address] [place] [address] 12/04/2019 13:03:01 12/05/2019 08:16:06 Routine care 253641865 Z34.91 Active or passive immunization 983050064 Z23 Gestation period, 32 weeks 5396239 Z3A.32 [id number] YESICA CARIAS, DO G5 [address] [place] [address] 12/19/2019 11:16:58 12/22/2019 13:06:10 Routine care 100994374 Z34.91 Doing well, no complaints . Good FM. QTOX today negative. s/p flu vaccine and TDAP at previous visits. Discussed GBS next visit, cervical checks beginning at 37 weeks. Has USN for EFW, position check scheduled at 36 weeks. [id number] AFSHIN STEWARD , DO G[address] [place] [address] 12/22/2019 11:32:59 12/25/2019 13:26:12 Routine care 179583623 Z34.03 OB Problem visit. Patient in the office reporting that she is having a difficult time continuing to work. 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 Would like to stop working. Reviewed course with patient. No OB concerns. Currently 34.4 wga. Safe at home and has no emotional concerns. Appears pleasant and understand ing today. Encouraged to work until full term. No reason to remove from work at THIS time however, can stop at 37 wga due to requiremen t of driving / extended travel. Routine PTL and FM Precaution s reviewed. Has follow up USN and OB visit scheduled. Encouraged to continue to work for the next 2+ weeks. Support provided. Gestation period, 34 weeks 35257496 Z3A.34 [id number] ANGÉLICA FISHER MD WHG5 [address] [place] [address] 12/26/2019 09:46:47 01/01/2020 09:49:30 Routine care 168540135 Z34.03 Gestation period, 35 weeks 66295665 Z3A.35 [id number] YESICA CARIAS DO [facility] [address] [place] [address] 01/02/2020 13:57:53 01/04/2020 16:55:28 Routine care 271547100 Z34.91 Doing well, no complaints . Good FM. GBS collected today. USN for EFW scheduled in 2 days in office. QTOX + for opiates today, patient denies use but states she has been eating a daily everything bagel with poppy seeds , will send for confirmato ry testing. [id number] YESICA CARIAS DO [facility] [address] [place] [address] 01/04/2020 11:36:17 01/04/2020 13:54:24 Routine care 986894333 Z34.91 Vaginitis 46824395 N76.0 Patient presents for OB problem visit. Notes trickle of fluid on her underwear on and off since last night. No obvious leaking of clear fluid, no soaking through underwear, no large gush, just spots on her underwear. No urinary symptoms. USN today with normal ORESTES. Urine dip with trace blood and protein, 3+ leuks. With exam, white/gree n mucous-lik e discharge noted in vault. No leaking fluid with cough. Neg fern/nitra zine/pooli ng. ? possible yeast. Affirm, GC/CL and urine culture all collected and sent today, await results. Patient to keep upcoming OB visit as scheduled. [id number] ANGÉLICA FISHER MD G[address] [facility] [place] [address] 01/09/2020 10:45:15 01/15/2020 13:21:11 Routine care 559703710 Z34.03 Gestation period, 37 weeks 04474089 Z3A.37 Drug of abuse screen 897 [address] Z02.83 [id number] YESICA CARIAS, DO [facility] [address] [facility] [place] [address] 01/16/2020 13:32:44 01/17/2020 13:52:45 Routine care 152439884 Z34.91 Doing well, no complaints . Good FM. Denies ctx, lof, vb. Had NST on Wednesday at [facility] with ORESTES 6.8cm. Plan to continue 2x weekly NST with ORESTES at [facility] until delivery (last NST report noted recommenda tion for once weekly ORESTES but given patient anxiety regarding fluid levels will continue 2x weekly fluid check at time of scheduled NSTs). Signs labor, ROM, movement precaution s reviewed. Negative QTOX today. [id number] AFSHIN STEWARD , [facility] [address] [facility] [place] [address] 01/31/2020 11:52:32 02/02/2020 09:04:47 Postoperative visit 395472381 Z09 Patient in the office for post operative incision check after pTLCS. She is doing well and has had no complicati ons since surgery. We reviewed the procedure in detail and discussed routine post op / post expectatio ns. No issues with pain control or bleeding. Denies headache, fever, chills, cp, sob. All questions answered. RTO for routine 6 week PPV. [id number] CASI ENCISO, DO [facility] [address] [facility] [place] [address] 06/03/2020 13:20:00 06/05/2020 08:14:44 test positive 566925251 Z32.01 Patient concerned because of the short duration of time in between her last delivery (01/23/2020 by Primary LTC/S) and this . I reviewed risk of uterine rupture with labor. Will do REPEAT LTC/S at 39wks. Will have GUILLERMINA/C-Sect ion Scar checked by USN periodical ly during 3rd Trimester. Total visit length 30 minutes of which at least 25 minutes was spent in face to face counseling and coordinati on of care. All questions were answered to the patient's satisfacti on. Health Concerns Section Related Observation LastModified by Organization Detai ls LastModified Time None Recorded Concern Status LastModified by Organization Details LastModified Time None Recorded Advance Directives Directive None Recorded Payers Encounter Date Sequence Insurance Name Policy Number Policy Leon Covered Member ID Leon Member ID Guarantor Name 01/04/2020 1 [place] Sunshine N Jordan [id number] Sunshine Jordan 01/09/2020 1 [place] Sunshine N Jordan [id number] Sunshine Jordan 01/16/2020 1 [place] Sunshine N Jordan [id number] Sunshine Jordan 01/31/2020 1 [place] Sunshine N Jordan [id number] Sunshine Jordan 06/03/2020 1 [place] Sunshine N Jordan [id number] Sunshine Jordan Notes Date Note Type Note Provider Name and Address Organization Details Recorded Time 01/16/2020 text/html YESICA CARIAS, DO [address] Floor, [place], [place], [id number], [facility] 01/16/2020 14:03:53 01/31/2020 text/html Pain well controlled. Only light spotting. NO headache, fever, chills, cp, sob. No emotional concerns at this time. AFSHIN STEWARD, DO [address], [address], [place], [address], [facility] 01/31/2020 12:05:35 06/03/2020 text/html Patient her with concerns of getting so quickly after last . CASI ENCISO, DO [address], [address], [place], [address], [facility] 06/03/2020 13:49:59 OBGyn Episode Ob Episode Information Episode Created Date Number of Fetuses Patient Bloodtype Patient rh Status Prepregnancy Weight lbs Domestic Partner Domestic Partner Phone Father Name Metal Bench Patternmaker Status 06/12/20 20 1 DELETED Fetus Data First Name Last Name Admitted to NICU Weight (g) Sex Living Outcome Pediatric Complications Fetus ID Race Codes Race Delivery Type [id number] Kelechi Calculation Initial Kelechi Date Initial Exam Date Initial Exam Provider Initial Ultrasound Date Last Menstrual Period Date Ultra Sound Weeks Gestation 01/06/2021 06/13/2020 05/31/2020 03/31/2020 0 Eighteen To Twenty Week Kelechi Update Ultra Sound Date Fundal Height At Umbil Quickening Date Ultra Sound Latest Weeks Gestation Final Kelechi Confirmed By Final Kelechi Confirmed Date Final Kelechi Date Ultra Sound Latest Days Gestation 0 01/05/20 21 0 Menstrual History Last Menstrual Date Menses Monthly On Bcp Conception Prior Menses Frequency Hcg Plus Date Menarche Onset Age 0503/31/2020 false Delivery Information Delivery Date Delivery Type Labor Anesthesia Weeks Gestation Incision Type Labor Labor Length Hrs Delivered By Post Complications Tubal Sterilization Discharge Date Comments Discharge Information Feeding Method Contraceptive Method Maternal HG B and HCT Levels Ob Episode Information Episode Created Date Number of Fetuses Patient Bloodtype Patient rh Status Prepregnancy Weight lbs Domestic Partner Domestic Partner Phone Father Name Metal Bench Patternmaker Status 06/19/20 19 1 A Positive 145 Ori Asher f CLOSED Fetus Data First Name Last Name Admitted to NICU Weight (g) Sex Living Outcome Pediatric Complications Fetus ID Race Codes Race Delivery Type [id number] 8 F [id number] - Primary Problems Problem Notes smoked MJ to help sleep, but D/C with POS PT/ NO HX of chicken pox/Caffeine also D/C with POS PT/ Cats at home, but will not change litter.01/03/20: OB USN @ 36w3d: Bennett IUP, + FH 139 bpm. Vertex. Anterior placenta. ORESTES 14.7cm. EFW 76% (6lbs 12 oz). SCP3/10: ORESTES 6.62, NST Reactive: recommend 2X week NST and weekly ORESTES: see phone note from : ORESTES 8.4, NST R Problem Name Start Date End Date Resolution Snomed Code Note Marginal insertion of umbilical cord [id number] Noted with NT USN, patient has level II USN scheduled at [facility]. SCP: normal CI on USN 09/2019Nl placental CI described on tri USN, [facility]. CSD Oligohydramnios without rupture of membranes [id number] Seen at [facility] on 01/05 with c/o leaking. No rupture on multiple exams. ORESTES 4 and then 8 when MFM scanned her after PO fluid intake. Discharged from home. Will need follow up USN in office first week of JANUARY. TBF 01/08/20: Repeat USN shows ORESTES 5.6 cm. Reactive NST. TBF 01/11/20: patient again evaluated at [facility] given concern for ? LOF and recently being followed for borderline (low normal) ORESTES. Technically, has never been officially oligo with a formal USN. Speculum exam again negative for ROM. Reactive NTS. USN today by Dr. King with ORESTES of 8cm. Patient reassured by MFM and by myself that clinical picture not c/w ROM or oligo at this time and no indication for delivery at this time. Will plan for NST/ORESTES on Wednesday01/15/20; even if normal fluid at that time will likely plan to continue weekly NST/ORESTES until delivery for patient reassurance. SCP 01/10: ORESTES 7.8, repeat USN PRN History of cannabis abuse [id number] Pt admits at IOB that she was smoking MJ prior to to assist w/ sleep. Pt aware of contraindications to use in , aware of plan for serial qtox. Pt states she is no longer smoking & does not intend further use. Pt denies use of any other substances.Qtox from IOB negative for propoxyphene, EtOH, & all substances except marijuana. Pt to have serial qtox over . Provider to review w/ pt at 2nd OB visit. (discussed probable serial qtox at IOB). CSD 07/26/19: reviewed with patient at visit today, she states she has stopped using MJ entirely, aware we will be checking serial QTOX. SCP . 07/26/19: QTOX negative other than continued + for marijuana, review next visit. SCP History of kidney disease [id number] Pt w/ h/o VUR, tx'd at 3 yo w/ ?bilateral ureteral reimplantation at [facility] [place] [place]. Pt reports she has frequent UTI's/pyelo related to this. COnsider serial UCx vs other prophylaxis prn, will review w/ MFM. Kelechi Calculation Initial Kelechi Date Initial Exam Date Initial Exam Provider Initial Ultrasound Date Last Menstrual Period Date Ultra Sound Weeks Gestation 01/29/2020 06/19/2019 06/13/2019 7 Eighteen To Twenty Week Kelechi Update Ultra Sound Date Fundal Height At Umbil Quickening Date Ultra Sound Latest Weeks Gestation Final Kelechi Confirmed By Final Kelechi Confirmed Date Final Kelechi Date Ultra Sound Latest Days Gestation 0 [email or web address] 06/19/2019 01/29/20 20 0 Pre- Flowsheet Flowsheet Date 06/28/2019 Farley Score Blood Edema Fundus Height Fundus Units Glucose Ketones Leukocytes Nitrite Labor Signs Protein Cervic Dilation Cervic Effacement Cervic Station neg none negative none Negative neg Type Weight in lbs Pre/Post Dialysis Refused Weight 150.496681115218 BP Diastolic BP Location Tested BP Systolic BP Type 76 128 Fetus Heart Rate Present Fetus Movement Comments Has been having nausea and v omiting relieved by Diclegis use, no c/o PARRA/VB/Edema or /UTI sxs. Last pap was ~1 year ago. No hx of chicken pox, will check varicella. Plans Carrier screen/NIPS/NT/AFP. SM LPN24 yo presents w/ FOB for IOB. Pt w/ LMP unknown, had recent 1st tri USN at [facility] demonstrating viable IUP at 7 1/7 wks & establishing EDC=01/29/20.Pt has had sx's of N/V since onset of , trying diet changes & use of Diclegis w/ some relief of sx's. Pt denies VB or current /UTI sx's except has noted some increased quantity of D/C.Pt reports no h/o EtOH or cigarette use. Pt states she does not use any street drugs except had been smoking marijuana to help her sleep prior to .Reviewed office policy. Reviewed antepartum testing w/ genetic carrier screening, cfDNA testing, & NT USN--pt wishes to do all. Reviewed travel history--pt & FOB deny recent travel (less than 1 yr ago) or plans for travel to areas w/ high risk of exposure to Zika; reviewed risks of Zika virus exposure, transmission in . Reviewed use of bug sprays w/ DEET.RTO 4 wks Flowsheet Date 07/26/2019 Farley Score Blood Edema Fundus Height Fundus Units Glucose Ketones Leukocytes Nitrite Labor Signs Protein Cervic Dilation Cervic Effacement Cervic Station neg none none negative none none neg Type Weight in lbs Pre/Post Dialysis Refused Weight 154.579992637654 BP Diastolic BP Location Tested BP Systolic BP Type 74 120 Fetus Heart Rate Present A 155 Present Fetus Movement Comments pt c/o nausea, vomiting in t he morning, no parra, pt has occ cramping, no swelling, no vb/fluid, pt has f/u usn scheduled fp slip givenqtox sentDoing well, no complaints. Reviewed all labs, USNs to date. Patient aware of + MJ with QTOX, negative Panorama and Horizon results, normal NT USN other than marginal cord insertion noted with this USN. Has level II USN scheduled at [facility] in August 2019. Lab slip given today for MSAFP, aware she needs to wait until 16 weeks. No recent or upcoming travel. Flowsheet Date 09/29/2019 Farley Score Blood Edema Fundus Height Fundus Units Glucose Ketones Leukocytes Nitrite Labor Signs Protein Cervic Dilation Cervic Effacement Cervic Station neg none 22 cm none negative none Other (see comments ) neg Type Weight in lbs Pre/Post Dialysis Refused Weight 156.009041496979 BP Diastolic BP Location Tested BP Systolic BP Type 72 118 Fetus Heart Rate Present A 144 Present Fetus Movement A Yes Comments no c/o n/v/edema/PARRA reviewed cord blood policy and Tdap. Given 28 week labs. Drug screening negativepatient states she forgot to have AFp done. flu vaccine given no ctxs, cramping, bleeding or ROMGood FMPML and FA reviewedsun, bug, Zika, sex and travel precautions reviewedNo recent Viral illness, rash or arthralgiasLabs and U/S reviewed: level II reviewed: MSAFP not done, check Qtox, flu shot given Flowsheet Date 11/06/2019 Farley Score Blood Edema Fundus Height Fundus Units Glucose Ketones Leukocytes Nitrite Labor Signs Protein Cervic Dilation Cervic Effacement Cervic Station neg none 28 cm none negative none Negative neg Type Weight in lbs Pre/Post Dialysis Refused Weight 179.309480882703 BP Diastolic BP Location Tested BP Systolic BP Type 66 116 Fetus Heart Rate Present A 135 Fetus Movement A Yes Comments Headaches: NoNausea: NoVomit ing: NoFetal movement: YesContractions: NoUrine sent for qtox.Pt notes + GFM & denies pain/ctxns. Pt denies current /UTI sx's.Pt does state she had scant pink-tinged staining on ?underwear when in [place] on 11/01/19, no prior intercourse or exam. Pt has not had recurrence of sx's.Pt advised to observe, contact office if recurs. Reviewed results to date, including nl 3rd tri labs.Reviewed tdap, pt had last visit per her report (no documentation of this in chart)--reviewed indications for close family members & FOB to have booster as well.PLEASE REVIEW TDAP W/ PT NEXT VISIT, NOT CLEAR SHE ACTUALLY RECEIVED THIS AT LAST VISIT.RTO 4 wks Flowsheet Date 12/04/2019 Farley Score Blood Edema Fundus Height Fundus Units Glucose Ketones Leukocytes Nitrite Labor Signs Protein Cervic Dilation Cervic Effacement Cervic Station neg none 32 cm none negative none Negative neg Type Weight in lbs Pre/Post Dialysis Refused With clothes 185.217712611645 BP Diastolic BP Location Tested BP Systolic BP Type 70 110 sitting Fetus Heart Rate Present A 144 Present Fetus Movement A Yes Comments Nausea: NoVomiting: NoHeadac hes: NoFM+Contractions/Cramping: Menstrual like cramps and shooting pains yesterday (Wednesday12/03/2019)Patient states that she realized that she did not have the Tdap she had the flu shot 2 visits ago.Tdap today. Flowsheet Date 12/19/2019 Farley Score Blood Edema Fundus Height Fundus Units Glucose Ketones Leukocytes Nitrite Labor Signs Protein Cervic Dilation Cervic Effacement Cervic Station neg none 34 cm none negative none Negative none neg Type Weight in lbs Pre/Post Dialysis Refused Weight 191.981093993213 BP Diastolic BP Location Tested BP Systolic BP Type 60 124 Fetus Heart Rate Present A 142 Present Fetus Movement A Yes Comments Headaches: NoNausea: OccVomi ting: OccFetal movement: YesContractions: NoQtox done.Doing well, no complaints. Good FM. QTOX today negative. s/p flu vaccine and TDAP at previous visits. Discussed GBS next visit, cervical checks beginning at 37 weeks. Has USN for EFW, position check scheduled at 36 weeks. Flowsheet Date 12/22/2019 Farley Score Blood Edema Fundus Height Fundus Units Glucose Ketones Leukocytes Nitrite Labor Signs Protein Cervic Dilation Cervic Effacement Cervic Station neg none 35 none negative 1+ Negative Other (see comments ) neg Type Weight in lbs Pre/Post Dialysis Refused With clothes 190.631123402221 BP Diastolic BP Location Tested BP Systolic BP Type 68 112 sitting Fetus Heart Rate Present A 145 Fetus Movement A Yes Comments Nausea: YesVomiting: Yes, la st 2 daysHeadaches: NoFM+Contractions/Cramping: Menstrual like crampsPatient is here today complaining of being exhausted, wants to discuss FMLAOB Problem visit. Patient in the office reporting that she is having a difficult time continuing to work. 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 Would like to stop working. Reviewed course with patient. No OB concerns. Currently 34.4 wga. Safe at home and has no emotional concerns. Appears pleasant and understanding today. Encouraged to work until full term. No reason to remove from work at THIS time however, can stop at 37 wga due to requirement of driving / extended travel. Routine PTL and FM Precautions reviewed. Has follow up USN and OB visit scheduled. Encouraged to continue to work for the next 2+ weeks. Support provided. TBF Flowsheet Date 12/26/2019 Farley Score Blood Edema Fundus Height Fundus Units Glucose Ketones Leukocytes Nitrite Labor Signs Protein Cervic Dilation Cervic Effacement Cervic Station neg none 35 cm none negative none Negative Other (see comments ) neg 0cm 10% -3 Type Weight in lbs Pre/Post Dialysis Refused Weight 194.728822347905 BP Diastolic BP Location Tested BP Systolic BP Type 80 120 Fetus Heart Rate Present A 144 Present Fetus Movement A Yes Comments Headaches: NoNausea: NoVomit ing: NoFetal movement: YesContractions: Went to [facility] Wednesday night with contractions/Bleeding after exam pt states a lot. Stopped today now having back pain and vaginal pain.occ ctxs, cramping, no further bleeding or ROMGood FMSOL and FACs reviewedsun, bug, Zika, sex and travel precautions reviewedNo recent Viral illness, rash or arthralgiasLabs and U/S reviewed: pt with increasing discomfort, concerns with driving and working with clientsOOW note written since no accommodations can be given per Pt\Reviewed DR visit and follow up, Rest, fluids, precautions givenOffered counselor #s for support, declines at presentFollow up as scheduled Flowsheet Date 01/02/2020 Farley Score Blood Edema Fundus Height Fundus Units Glucose Ketones Leukocytes Nitrite Labor Signs Protein Cervic Dilation Cervic Effacement Cervic Station neg none 36 cm none negative none Negative none neg 0cm 0% Type Weight in lbs Pre/Post Dialysis Refused Weight 198.275100058760 BP Diastolic BP Location Tested BP Systolic BP Type 72 110 Fetus Heart Rate Present A 142 Present Fetus Movement A Yes Comments Headaches: No, Nausea: No, V omiting: No, movement: YesContractions: NoQtox sent.Beta strep done in office today.Doing well, no complaints. Good FM. GBS collected today. USN for EFW scheduled in 2 days in office. QTOX + for opiates today, patient denies use but states she has been eating a daily everything bagel with poppy seeds , will send for confirmatory testing. Flowsheet Date 01/04/2020 Farley Score Blood Edema Fundus Height Fundus Units Glucose Ketones Leukocytes Nitrite Labor Signs Protein Cervic Dilation Cervic Effacement Cervic Station trace none none small 3+ Negative Other (see comments ) trace Type Weight in lbs Pre/Post Dialysis Refused With clothes 196.752255135764 BP Diastolic BP Location Tested BP Systolic BP Type 80 136 sitting Fetus Heart Rate Present A 140 Present Fetus Movement A Yes Comments Patient presents for OB prob [place] visit. Notes trickle of fluid on her underwear on and off since last night. No obvious leaking of clear fluid, no soaking through underwear, no large gush, just spots on her underwear. No urinary symptoms. USN today with normal ORESTES. Urine dip with trace blood and protein, 3+ leuks. With exam, white/green mucous-like discharge noted in vault. No leaking fluid with cough. Neg fern/nitrazine/pooling. ? possible yeast. Affirm, GC/CL and urine culture all collected and sent today, await results. Patient to keep upcoming OB visit as scheduled. Flowsheet Date 01/09/2020 Farley Score Blood Edema Fundus Height Fundus Units Glucose Ketones Leukocytes Nitrite Labor Signs Protein Cervic Dilation Cervic Effacement Cervic Station none 37 cm none negative Other (see comments ) neg 2cm 80% -2 Type Weight in lbs Pre/Post Dialysis Refused Weight 198.926670983913 BP Diastolic BP Location Tested BP Systolic BP Type 76 122 sitting Fetus Heart Rate Present A 136 Present Fetus Movement A Yes Comments Pt has no c/o v/parra/edema, le ss movement since hospital visit on wednesday, was sent to hospital for low fluid, had usn yesterday at [facility], said it 5.6. GBS done on 01.03.20. qtox neg today. CC CMAocc ctxs, cramping, no bleeding or ROM, still notes same D/C (AFFIRM neg, w/u for SROM neg at [facility])Good FMSOL and FACs reviewedsun, bug, Zika, sex and travel precautions reviewedNo recent Viral illness, rash or arthralgiasLabs and U/S reviewed: ORESTES 5.6, NST Reactive yesterday, GBS negWill recheck ORESTES this week, force fluids, strict f/c/s, ROM, d/c or bleeding prec, strict FACs reviewed Flowsheet Date 01/16/2020 Farley Score Blood Edema Fundus Height Fundus Units Glucose Ketones Leukocytes Nitrite Labor Signs Protein Cervic Dilation Cervic Effacement Cervic Station neg none 38 cm none negative trace Negative none neg 1cm 7 0% -3 Type Weight in lbs Pre/Post Dialysis Refused With clothes 202.825556320364 BP Diastolic BP Location Tested BP Systolic BP Type 72 118 sitting Fetus Heart Rate Present A 145 Present Fetus Movement A Yes Comments Patient c/o occ nausea, no v omiting or headache , + FM, doing well at this timeDoing well, no complaints. Good FM. Denies ctx, lof, vb. Had NST on Wednesday at [facility] with ORESTES 6.8cm. Plan to continue 2x weekly NST with ORESTES at [facility] until delivery (last NST report noted recommendation for once weekly ORESTES but given patient anxiety regarding fluid levels will continue 2x weekly fluid check at time of scheduled NSTs). Signs labor, ROM, movement precautions reviewed. Negative QTOX today. Flowsheet Date 01/31/2020 Farley Score Blood Edema Fundus Height Fundus Units Glucose Ketones Leukocytes Nitrite Labor Signs Protein Cervic Dilation Cervic Effacement Cervic Station Type Weight in lbs Pre/Post Dialysis Refused Weight 194.215898855394 BP Diastolic BP Location Tested BP Systolic BP Type 84 126 Fetus Heart Rate Present Fetus Movement Comments Menstrual History Last Menstrual Date Menses Monthly On Bcp Conception Prior Menses Frequency Hcg Plus Date Menarche Onset Age false 12 Genetic Screening And Infection History Question Response Note Patient's Age Will Be 35 Yea rs Or Older At Estimated Date of Delivery false Thalassemia (Albanian, Ukrainian, Mediterranean, Or Background): MCV < 80 false Neural Tube Defect (Meningom yelocele, Spina Bifida, Or Anencephaly) false Congenital Heart Defect false Down Syndrome false Coleman-Sachs (eg, Gnosticist, Cajun , Puerto Rican-Frannie) false Sanaz Disease false Sickle Cell Disease Or Trait () false Hemophilia Or Other Blood Disorders false Muscular Dystrophy false Cystic Fibrosis false Claudette's Chorea false Mental Retardation/Autism false If Yes, Was Person Tested For Fragile X? false Other Inherited Genetic Or C hromosomal Disorder false Maternal Metabolic Disorder (eg, Type 1 Diabetes, PKU) false Patient Or Baby's Father Had A Child With Defects Not Listed Above false Recurrent Loss, Or A Stillbirth false Medications (including Suppl ements, Vitamins, Herbs, OTC Drugs), Illicit/Recreational Drugs, Alcohol true PNV's/ Pt used MJ at HS to help sleep BUT d/c w/POS PT. If Yes, Agent(s) And Strength/Dosage false Any Other Genetic History false Live With Someone With TB Or Exposed To TB false Patient Or Partner Has Histo ry Of Genital Herpes false Rash Or Viral Illness Since Last Menstrual Period false History Of STD, Gonorrhea, C hlamydia, HPV, Syphilis false Other Infection History false Familial Dysautonomia (Ashkenazi Gnosticist) false Spinal Muscular Atrophy false Parkinson Disease false History of HIV false History of Hepatitis false Prior GBS-infected child false Plans and Education First Trimester Discussed Date Discussion Item Discussion Note Discuss ed By 06/28/2019 Anticipated course of care [email or web address] 06/28/2019 Alcohol [email or web address] 06/28/2019 Environmental/work hazards c [email or web address] 06/28/2019 Screening for aneuploidy [email or web address] 06/28/2019 Nutrition counseling ; special diet; dietary precautions (mercury, listeriosis) [email or web address] 06/28/2019 Childbirth classes/hospital facilities [email or web address] 06/28/2019 HIV and other routine tests [email or web address] 06/28/2019 Risk factors identif ied by history [email or web address] 06/28/2019 Exercise [email or web address] 06/28/2019 Teratogens [email or web address] 06/28/2019 Use of any medicatio ns (including supplements, vitamins, herbs, or OTC drugs) [email or web address] 06/28/2019 [email or web address] 06/28/2019 Sexual activity [email or web address] 06/28/2019 Tobacco/smoking cess ation counseling (ask, advise, assess, assist, and arrange) [email or web address] 06/28/2019 Illicit/recreational drugs c [email or web address] 06/28/2019 Travel [email or web address] Second Trimester Discussed Date Discussion Item Discussion Note Discuss ed By Third Trimester Discussed Date Discussion Item Discussion Note Discuss ed By 12/04/2019 Intimate partner violence christina arce12/04/2019 Anesthesia plans [email or web address]/04/2019 education (n ewborn screening, jaundice, SIDS/safe sleeping position, car seat) [email or web address] 12/04/2019 movement monitoring christina arce12/04/2019 [email or web address] 12/04/2019 Labor signs [email or web address] 12/04/2019 Signs and symptoms of preeclampsia [email or web address] 12/04/2019 Discussed and offered TDAP given on 2019 [email or web address] Delivery Information Delivery Date Delivery Type Labor Anesthesia Weeks Gestation Incision Type Labor Labor Length Hrs Delivered By Post Complications Tubal Sterilization Discharge Date Comments 0 39.1 TJM Discharge Information Feeding Method Contraceptive Method Maternal HG B and HCT Levels Bottle
--- OUTSIDE RECORDS SUMMARY | 2024-11-29 12:33 | XMS_ITS | Encounter Summary ---
Author Organization [facility] Address [address] [place] [address] Care Team Providers Care Jumpbasting Facing Baster Name Role Phone Aditi Constantino LIVESTOCK SALES REPRESENTATIVE Primary Care Provider [phone] Encounter Details Date Type Department Care Team (Late st Contact Info) Description 01/27/2024 Scanned Document [facility] Department of Internal Medicine [address] [place] [id number] Aditi Constantino, TONIE [address] [place] [address] Social History Tobacco Use Types Packs/Day Years [...] on filedocumented in this encounter Care Teams Jumpbasting Facing Baster Relationship Specialty Start Date End Date Aditi Constantino, TONIE [address] [place] [address] PCP - General 11/17/22 documented as of this encounter
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
--- OUTSIDE RECORDS SUMMARY | 2024-11-29 12:34 | XMS_ITS | Referral Summary ---
Author Organization [facility] Address [address] [place] [address] Care Team Providers Care Firmware Test Engineer Name Role Phone Esau Moctezuma MD Primary Care Provider [phone] Source Comments Please note that some or all of the patient's information could have additional privacy protections. State laws allow health care providers to render certain types of treatment to minors without parental consent. Please do not assume that this information can be shared solely by obtaining just the consent of the patient's parent/guardian. Please determine if all or part of the patient's care was rendered without parent/guardian involvement. 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 F/U with R/B U/S and voiding diary Assessment & Plan (10/24/2013 8:21 AM EST): Relevant Hx: Course: Daily Update: Today's Plan: Social History Tobacco Use Types Packs/Day Years Used Date Smoking Tobacco: Never Assessed Comments No Sex and Gender Information Value Date Recorded Sex Assigned at Not on file Legal Sex Female 2:15 AM EST Gender Identity Not on file Sexual Orientation Not on file Last Filed Vital Signs Vital Sign Reading Time Taken Comments Blood Pressure - - Pulse - - Temperature - - Respiratory Rate - - Oxygen Saturation - - Inhaled Oxygen Concentration - - Weight 54 kg (119 lb) 12/09/2012 1:12 PM EST Height 162.6 cm (5' 4 ) 12/09/2012 1:12 PM EST Body Mass Index 20.43 12/09/2012 1:12 PM EST Plan of Treatment Not on file [facility] Care Teams Firmware Test Engineer Relationship Specialty Start Date End Date Esau Moctezuma MD PCP - General 10/05/12
--- OUTSIDE RECORDS SUMMARY | 2024-11-29 12:34 | XMS_ITS | Encounter Summary ---
Author Organization [facility] Address [address] [place] [address] Care Team Providers Care Pad Cutter Name Role Phone Aditi Constantino Primary Care Provider [phone] Encounter Details Date Type Department Care Team Description 01/11/2020 Records Encounter HIM OFFICE [address] [place], [place] [id number] Provider, Not In System Social History Tobacco Use Types Packs/Day Years Used Date Smoking Tobacco: Never Smokeless Tobacco: Never Alcohol Use Standard Drinks/Week Comments No 0 (1 standard drink = 0.6 oz pur e alcohol) Comments Yes Sex and Gender Information Value Date Recorded Sex Assigned at Female 06/13/2019 11:35 AM EDT Gender Identity Female 01/12/2020 1:11 PM EST Sexual Orientation Straight 01/12/2020 1: 11 PM EST Job Start Date Occupation Industry Not on file Not on file Not on file documented as of this encounter Plan of Treatment Not on file documented as of this encounter Visit Diagnoses Not on filedocumented in this encounter Care Teams Pad Cutter Relationship Specialty Start Date End Date Aditi Constantino [address] [place] [address] PCP - General Family Medicine 01/27/24 documented as of this encounter
--- OUTSIDE RECORDS SUMMARY | 2024-11-29 12:34 | XMS_ITS | Clinical Summary ---
Author Organization [facility] Address [address] [place] [address] Care Team Providers Care Running Specialist Name Role Phone Aditi Constantino Primary Care Provider [phone] Allergies No known active allergies Medications Medication Sig Dispensed Refills Start Date End Date Status sertraline (ZOLOFT) 50 MG tablet Take 1 tablet (50 mg total) by mouth daily. 0 Active Active Problems Problem Noted Date Diagnosed Date Acute appendicitis with loca lized peritonitis, without perforation or gangrene 01/27/2024 Inversion sprain of right ankle 08/28/2020 History of 01/26/2020 Resolved Problems Problem Noted Date Diagnosed Date Resolved Date PROM (premature rupture of membranes) 01/23/2020 01/23/2020 RUQ pain 01/10/2020 01/23/2020 37 weeks gestation of 01/10/2020 01/23/2020 Amniotic fluid index borderline low 01/10/2020 01/23/2020 Decreased movement 01/07/202002/2020 Intact amniotic membranes du ring in third trimester 01/07/2020 01/23/2020 Oligohydramnios antepartum, third trimester, fetus 1 01/05/2020 01/10/2020 Social History Tobacco Use Types Packs/Day Years Used Date Smoking Tobacco: Never Smokeless Tobacco: Never Alcohol Use Standard Drinks/Week Comments No 0 (1 standard drink = 0.6 oz pur e alcohol) Sex and Gender Information Value Date Recorded Sex Assigned at Female 06/13/2019 11:35 AM EDT Gender Identity Female 01/12/2020 1:11 PM EST Sexual Orientation Straight 01/12/2020 1: 11 PM EST Job Start Date Occupation Industry Not on file Not on file Not on file Last Filed Vital Signs Vital Sign Reading Time Taken Comments Blood Pressure 105/71 02/07/2024 1:39 PM EDT Pulse 57 02/07/2024 1:39 PM EDT Temperature 37.1 ??C (98.8 ??F) 01/28/2024 6:00 PM ED T Respiratory Rate 12 01/28/2024 6:00 PM EDT Oxygen Saturation 98% 01/28/2024 6:00 PM EDT Inhaled Oxygen Concentration - - Weight 68 kg (150 lb) 02/07/2024 1:39 PM EDT Height 162.6 cm (5' 4 ) 02/07/2024 1:39 PM EDT Body Mass Index 25.75 02/07/2024 1:39 PM EDT Plan of Treatment Health Maintenance Due Date Last Done Comments Hepatitis C Screening 1996 COVID-19 Vaccine (#1) 1996 Depression Screening 2008 Preventative Health Evaluation 02/11/2014 Cervical Cancer Screening (Pap Smear) 02/11/2017 BMI Counseling 08/28/2021 08/28/2020 Influenza Vaccine (#1) 2024 09/29/2019, 2008 DTap / Tdap / Td (9 - Td or Tdap) 12/04/2029 12/04/2019, 07/17/2013, 03/01/2007, Additional history exists Hepatitis B Vaccines Completed 1996, 1996, 1996 Pneumococcal Vaccine Aged Out No long er eligible based on patient's age to complete this topic RSV Ped < 20 months Aged Out No longe r eligible based on patient's age to complete this topic Advance Directives For more information, please contact: [phone] Latest Code Status on File Code Status Date Activated Date Inactivated Comments Full Code 01/28/2024 1:13 AM 01/29/2024 1:56 AM This code status was ascertained in the following way: discussion with patient . Code Status History Code Status Date Activated Date Inactivated Comments Full Code 01/23/2020 12:18 AM 01/26/2020 7:24 PM This code status was ascertained in the following way: discussion with patient . Care Teams Running Specialist Relationship Specialty Start Date End Date Aditi Constantino [address] [place] [address] PCP - General Family Medicine 01/27/24
--- OUTSIDE RECORDS SUMMARY | 2024-11-29 12:34 | XMS_ITS | Encounter Summary ---
Author Organization [facility] Address [address] [place] [address] Care Team Providers Care Water Supply Engineer Name Role Phone Aditi Constantino Primary Care Provider [phone] Encounter Details Date Type Department Care Team Description 01/05/2020 Records Encounter HIM OFFICE [address] [place], [place] [id number] Provider, Not In System Social History Tobacco [...] on filedocumented in this encounter Care Teams Water Supply Engineer Relationship Specialty Start Date End Date Aditi Constantino [address] [place] [address] PCP - General Family Medicine 01/27/24 documented as of this encounter
--- OUTSIDE RECORDS SUMMARY | 2024-11-29 12:34 | XMS_ITS | Clinical Summary ---
Author Organization [facility] Address [address] [place] [address] Care Team Providers Care Scrap Baler Name Role Phone Esau Moctezuma MD Primary Care Provider [phone] Source Comments Please note that some or [...] so, obtain the minor's consent prior to disclosure.[facility] Allergies No known active allergies Active [...] 12/09/2012 1:12 PM EST Plan of Treatment Health Maintenance Due Date Last Done Comments DTaP/TDAP/TD VACCINES (1 - Tdap) 02/11/2003 ADOLESCENT HIV SCREENING 02/11/2009 COVID-19 Vaccine ( - 2023-2 5 season) 2024 INFLUENZA (#1) 2024 NIRSEVIMAB VACCINES UNDER 8 MONTHS Aged Out No longer eligible based on patient's age to complete this topic Insurance * Guarantor: CATERINA VELIZ Account Type Relation to Patient Date of Phone Billing Address Personal/Family Mother [address] [place] [address] [facility] A Care Teams Scrap Baler Relationship Specialty Start Date End Date Esau Moctezuma MD PCP - General 10/05/12
--- OUTSIDE RECORDS SUMMARY | 2024-11-29 12:35 | XMS_ITS | Clinical Summary ---
Author Organization [facility] Address [address] [place] [address] Care Team Providers Care Performance Reporter Name Role Phone Aditi Constantino NP Primary Care Provider [phone] Surgical History Surgery Date Site/Laterality Comments URETERAL REIMPLANTION PROCEDURE:URETERAL REIMPLANTION SECTION 01/23/2020 N/A PROCEDURE: SECTION;COMMENT:Procedure: OB SECTION; Surgeon: Chucky Gruber MD; Location: [facility] DELIVERY RO[facility]; Service: Obstetrics; Laterality: N/A; APPENDECTOMY 01/28/2024 N/A PROCEDURE:APPENDECTOMY;COMMENT:Proced ure: LAPAROSCOPY APPENDECTOMY; Surgeon: Dhruv Ulloa MD; Location: [facility] SUR[facility]; Service: General; Laterality: N/A; Medical History Medical History Date Comments Asthma DX:Asthma Oligohydramnios DX:Oligohydramni os Social History Tobacco Use Types Packs/Day Years Used Date Smoking Tobacco: Never Smokeless Tobacco: Never Alcohol Use Standard Drinks/Week Comments No 0 (1 standard drink = 0.6 oz pur e alcohol) Sex and Gender Information Value Date Recorded Sex Assigned at Not on file Gender Identity Not on file Sexual Orientation Not on file Obstetrics History Last Filed Vital Signs Vital Sign Reading Time Taken Comments Blood Pressure 105/71 02/07/2024 1:39 PM EDT Sit ting Left arm Pulse 57 02/07/2024 1:39 PM EDT Temperature - - Respiratory Rate - - Oxygen Saturation - - Inhaled Oxygen Concentration - - Weight 68 kg (150 lb) 02/07/2024 1:39 PM EDT Height 162.6 cm (5' 4 ) 02/07/2024 1:39 PM EDT Body Mass Index 25.75 02/07/2024 1:39 PM EDT Plan of Treatment Health Maintenance Due Date Last Done Comments DTaP,Tdap,and Td Vaccines (1 - Tdap) 02/11/2015 Hepatitis B Vaccines (1 of 3 - 19+ 3-dose series) 02/11/2015 Cervical Cancer Screening: P ap Smear 02/11/2017 Depression Screening 10/11/2022 HIV Screening 10/11/2022 Hepatitis C Screening 10/11/2022 Social Influencers of Health Screening 10/11/2022 COVID-19 Vaccine ( - 2023-2 5 season) 2024 Influenza Vaccine (#1) 2024 HIB Vaccines Aged Out No longer eligi ble based on patient's age to complete this topic HPV Vaccines Aged Out No longer eligi ble based on patient's age to complete this topic Hepatitis A Vaccines Aged Out No long er eligible based on patient's age to complete this topic IPV Vaccines Aged Out No longer eligi ble based on patient's age to complete this topic MMR Vaccines Aged Out No longer eligi ble based on patient's age to complete this topic Meningococcal ACWY Vaccine Aged Out N o longer eligible based on patient's age to complete this topic Pneumococcal Vaccine: Pediat rics (0 to 5 Years) and At-Risk Patients (6 to 64 Years) Aged Out No longer eligible b ased on patient's age to complete this topic RSV Immunization Patients Un russell 20 months Aged Out No longer eligible b ased on patient's age to complete this topic Varicella Vaccines Aged Out No longer eligible based on patient's age to complete this topic Care Teams Performance Reporter Relationship Specialty Start Date End Date Aditi Constantino NP [address] [place] [address] PCP - General 01/27/24
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
--- OUTSIDE RECORDS SUMMARY | 2024-11-29 12:35 | XMS_ITS ---
Author Name [facility] Organization Unknown Results Test Name/Text Value Interpretation Date Range Source HGB BLD MCNC 11.4g/dL Below low normal [id number] 12.5 - 16 [facility] VFR BLD AUTO 34.6% Below low normal [id number] 37 - 47 [facility] BLOOD BANK NT PATIENT-IMP Normal [facility] ABO+RH GP BLD Normal [facility] BLD GP AB SCN SERPL QL Normal [facility] PT TIME PPP 13.6sec Above high normal 10.5 - 13.3 [facility] INR PPP 1.1 Normal [id number] 0.8 - 1.1 [facility] LACTATE SERPL SCNC 0.6mmol/L Normal [id number] 0.5 - 2 [facility] Service [facility] XXX-Imp Cepheid GeneXpert (RT-PCR) [facility] Normal [id number] [facility] FLUBV RNA Nph Ql ADEOLA+non-probe NEGATIVE Normal [id number] [facility] RSV RNA Nph Ql ADEOLA+non-probe NEGATIVE Normal [id number] [facility] FLUAV RNA Nph Ql ADEOLA+non-probe NEGATIVE Normal [id number] [facility] RBC number/area UrnS Auto >20 Above high normal [id number] 0 - 3 [facility] SQUAMOUS NO./AREA URNS LPF 3/LPF Normal [id number] 0 - 5 [facility] WBC number/area UrnS Auto 2/HPF Normal [id number] 0 - 5 [facility] Clarity Ur Refract.auto CLOUDY Normal [facility] Glucose Ur Ql Strip.auto NEGATIVE Normal - [facility] Nitrite Ur Ql Strip.auto NEGATIVE Normal [facility] Hgb Ur Ql Strip.auto LARGE Abnormal [facility] Ketones Ur Ql Strip.auto >80 Abnormal [facility] Leukocyte esterase Ur Ql Strip.auto TRACE Abnormal - [facility] Prot Ur Ql Strip.auto 30mg/dL Abnormal - [facility] Sp Gr Ur Strip.auto 1.015 Normal 1.005 - 1.03 [facility] pH Ur Strip.auto 7 Normal [id number] 4.5 - 8 [facility] AMYLASE SERPL CCNC 49U/L Normal 29 - 103 [facility] BILIRUB SERPL MCNC 0.8mg/dL Normal 0.3 - 1 [facility] BILIRUB DIRECT SERPL MCNC 0.1mg/dL Normal 0 - 0.2 [facility] CREAT SERPL MCNC 0.7mg/dL Normal 0.5 - 1 [facility] CALCIUM SERPL MCNC 9.1mg/dL Normal 8.4 - 10.2 [facility] SODIUM SERPL SCNC 138mmol/L Normal 135 - 145 [facility] ANION GAP SERPL SCNC 10mmol/L Normal 5 - 14 [facility] HCO3 SER SCNC 25mmol/L Normal 24 - 32 [facility] GLUCOSE SERPL MCNC 97mg/dL Normal 70 - 199 [facility] BUN SERPL MCNC 11mg/dL Normal 7 - [address] [facility] CHLORIDE SERPL SCNC 103mmol/L Normal [id number] 98 - 107 [facility] POTASSIUM SERPL SCNC 3.6mmol/L Normal 3.5 - 5.1 [facility] MAGNESIUM SERPL MCNC 1.9mg/dL Normal [id number] 1.7 - 2.8 [facility] LIPASE SERPL CCNC 23U/L Normal [id number] 11 - 82 [facility] LDH SERPL L TO P CCNC 138U/L Normal 125 - 220 [facility] AST SERPL CCNC 15U/L Normal [id number] 5 - 40 [facility] ALP SERPL-CCNC 40U/L Normal [id number] 34 - 104 [facility] ALT SERPL CCNC 10U/L Normal 7 - 52 [facility] HCG PREG SERPL QL NEGATIVE Normal [id number] [facility] PLATELET NO. BLD AUTO 193K/uL Normal [id number] 150 - 450 [facility] RBC NO. BLD AUTO 4.26M/uL Normal [id number] 4.2 - 5.4 [facility] NUCLEATED RBC 0% Normal [id number] 0 - 1 [facility] LYMPHOCYTES NO. BLD AUTO 0.9K/uL Below low normal 1 - 3.2 [facility] EOSINOPHIL NO. BLD AUTO 0K/uL Normal 0 - 0.5 [facility] MCH RBC QN AUTO 29.3pg Normal 25 - 33 C [facility] MCHC RBC AUTO MCNC 33.9g/dL Normal 32 - 36 [facility] MONOCYTES NFR BLD AUTO 8.3% Normal 2 - 12 [facility] IMMATURE GRANULOCYTE, ABSOLUTE 0.05k/uL Normal [id number] - 0.1 [facility] LYMPHOCYTES NFR BLD AUTO 8.2% Below low normal 20 - 48 [facility] EOSINOPHIL NFR BLD AUTO 0.4% Normal 0 - 6 [facility] HGB BLD MCNC 12.5g/dL Normal 12.5 - 16 [facility] NEUTROPHILS NO. BLD AUTO 8.8K/uL Above high normal [id number] 1.8 - 7.8 [facility] WBC NO. BLD AUTO 10.7K/uL Above high normal [id number] 4 - 10.5 [facility] BASOPHILS NFR BLD AUTO 0.2% Normal 0 - 2 [facility] MONOCYTES NO. BLD AUTO 0.9K/uL Above high normal 0 - 0.8 [facility] MCV RBC AUTO 86.6fL Normal 78 - 100 [facility] NEUTROPHILS NFR BLD AUTO 82.4% Above high normal 44 - 74 [facility] IMMATURE GRANULOCYTE, PERCENT 0.5% Normal 0 - 1 [facility] BASOPHILS IN BLOOD BY AUTOMATED COUNT 0K/uL Normal 0 - 0.2 [facility] PMV BLD AUTO 11.9fL Above high normal 7.4 - 11.4 [facility] RDW RBC AUTO RTO 13.3% Normal 12.1 - 16.2 [facility] HCT VFR BLD AUTO 36.9% Below low normal [id number] 37 - 47 [facility] SPECIMEN SOURCE XXX NASOPHARYNGEAL Normal [facility] SPECIMEN SOURCE XXX URINE CLEAN CATCH Normal [id number] [facility] History of Medication Use Medication Directions Dispensed Refills Start Date End Date Stat cefTRIAXone (ROCEPHIN) injection 1,000 mg 1,000 mg, Intravenous, Once, On Tanna 01/27/24 at 2130, For 1 doseIf ordered IV then reconstitute with 10 mL sterile water or normal saline and administer IV push over 3 to 5 minutes. 01/28/2024 01/28/2024 completed sertraline (ZOLOFT) 50 MG tablet Take 1 tablet (50 mg total) by mouth daily. active lactated ringers infusion 100 mL/hr, Intravenous, Continuous, Starting on Wed01/28/24 at 0115 01/28/2024 01/28/2024 aborted morphine sulfate injection 4 mg 4 mg, Intravenous, Once, On Tanna 01/27/24 at 2315, For 1 dose 01/28/2024 01/28/2024 completed Problems Problem Status Onset Date Problem Type Date of Resolution Source Appendicitis active EncounterDiagnosisAct [facility] Insomnia active 2023-08-23 ProblemAct [facility] Anxiety and depression active 2023-08-23 ProblemAct [facility] History of kidney disease active 2023-08-23 ProblemAct [facility] Hepatic steatosis active 2023-08-23 ProblemAct [facility] Pyelonephritis active 2013-10-24 ProblemAct [facility] Splenomegaly active 2023-08-23 ProblemAct [facility] Acute right ankle pain active [facility] Acute appendicitis active EncounterDiagnosisAct [facility] Inversion sprain of right ankle active 2020-08-28 ProblemAct [facility] History of active 2020-01-26 ProblemAct [facility] Vitamin B12 deficiency active 2023-08-23 ProblemAct [facility] Acute appendicitis with localized peritonitis, without perforation or gangrene active 2024-01-27 ProblemAct [facility] Abrasion of left knee, initial encounter active EncounterDiagnosisAct [facility] Asthma active 2019-06-28 ProblemAct [facility] Vitamin D deficiency active 2023-08-23 ProblemAct [facility] Sprain of right ankle, unspecified ligament, initial encounter active EncounterDiagnosisAct [facility] Immunizations Vaccine Date Source Lot Number Status Tdap 12/04/2019 [facility] [id number] completed Influenza, Quadrivalent (FLU ARIX, AFLURIA, FLULAVAL, FLUZONE) Preservative Free IM 09/29/2019 [facility] [id number] completed
== END 2024-11-29 11:07 | disposition home or self-care (01) ==
PROVIDERS: Emergency Provider Emergency Medicine; PCP Nurse Practitioner Primary Care
DX: F07.81 Postconcussional syndrome (principal)
CPT/HCPCS: 99282

== ENCOUNTER → 2024-12-04 11:38 | Outpatient (BNVA) | payer OTHER, SELFPAY | PROVIDERS: PCP Nurse Practitioner Primary Care; Visit Provider Physician Assistant Medical | DX: S06.0X0A Concussion without loss of consciousness, initial encounter (principal); S16.1XXA Strain of muscle, fascia and tendon at neck level, initial encounter; W50.0XXA Accidental hit or strike by another person, initial encounter; R51.9 Headache, unspecified; R20.2 Paresthesia of skin | CPT/HCPCS: 99213 ==

== ENCOUNTER → 2024-12-12 13:50 | Outpatient (BNVA) | payer OTHER, SELFPAY | PROVIDERS: PCP Nurse Practitioner Primary Care; Visit Provider Physician Assistant Medical | DX: S16.1XXD Strain of muscle, fascia and tendon at neck level, subsequent encounter (principal); W50.0XXD Accidental hit or strike by another person, subsequent encounter; F07.81 Postconcussional syndrome; H57.11 Ocular pain, right eye | CPT/HCPCS: 99214 ==

== ENCOUNTER 2024-12-18 14:04 | Outpatient (REF) | payer OTHER, SELFPAY ==
[2024-12-18] MEDS: gadobutroL 7.5 ML VIAL IVPUSH (15:05)
== END 2024-12-18 14:05 | disposition home or self-care (01) ==
LOC: HO.MRI 14:04
PROVIDERS: Visit Provider Internal Medicine
DX: S06.0X0A Concussion without loss of consciousness, initial encounter (principal)
CPT/HCPCS: 70553; A9585

== ENCOUNTER → 2024-12-18 14:25 | Outpatient (BNV) | payer OTHER, SELFPAY | PROVIDERS: Visit Provider Radiology Diagnostic Radiology | DX: S09.90XA Unspecified injury of head, initial encounter (principal) | CPT/HCPCS: 70553 ==

== ENCOUNTER → 2024-12-20 11:59 | Outpatient (BNVA) | payer OTHER, SELFPAY | PROVIDERS: Visit Provider Physician Assistant Medical | DX: F07.81 Postconcussional syndrome (principal); S16.1XXD Strain of muscle, fascia and tendon at neck level, subsequent encounter; W50.0XXD Accidental hit or strike by another person, subsequent encounter | CPT/HCPCS: 99214 ==

== ENCOUNTER 2024-12-28 14:13 | Outpatient (RCR) | payer OTHER, SELFPAY ==
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
--- NOTE | 2025-02-12 11:05 | MHC.PT.DC ---
[facility] [place] [facility] [place] Office [place] Office [address] Latisha Kumar [address] [phone] F: [phone] F: [phone] F: [phone] F: [phone] Physical Therapy Discharge Report Diagnosis: cervical strain, concussion (vestibular hypofunction and cervicogenic dizziness) (RS) Date of Surgery: Date of Evaluation: 12/12/24 Date of Discharge: 02/12/25 Treatments to Date: 3 Cancellations to Date: 5 No Shows to Date: 0 Discharge Status: Independent with HEP Visit Non-compliance Discharge Summary: Sunshine was last seen for PT session on 12/28/24 and the PT assessment reads, Sunshine is making steady progress with reduction of familiar symptoms. She is still experiencing nausea that is being treated with Zofran with relief. She is also using a special pillow for neck relief which has been helpful. Dizziness is somewhat positional with bending forward. She is nearing full cervical rotation AROM now, still with hypomobility in upper cervical spine but that she notes is improved with manual therapy. Added exercises for posture and rotational component. She reports no dizziness with thoracic rotations in sidelying. She cancelled remaining appointments and is discharged from PT. Electronically signed by: Sonia Driscoll, PT, DPT Please sign and return to therapist. Thank you for your referral.
== END 2025-02-12 11:05 | disposition home or self-care (01) ==
LOC: HO.PT 14:13
PROVIDERS: PCP Nurse Practitioner Primary Care; Visit Provider Physician Assistant Medical
DX: S16.1XXA Strain of muscle, fascia and tendon at neck level, initial encounter (principal); S06.0X0A Concussion without loss of consciousness, initial encounter; W50.0XXA Accidental hit or strike by another person, initial encounter
CPT/HCPCS: 95992; 97110; 97140; 97162

== ENCOUNTER → 2024-12-28 15:04 | Outpatient (BNVA) | payer OTHER, SELFPAY | PROVIDERS: Visit Provider Physician Assistant Medical | DX: F07.81 Postconcussional syndrome (principal); S16.1XXD Strain of muscle, fascia and tendon at neck level, subsequent encounter; X50.0XXD Overexertion from strenuous movement or load, subsequent encounter | CPT/HCPCS: 99213 ==

== ENCOUNTER → 2025-01-04 12:18 | Outpatient (BNVA) | payer OTHER, SELFPAY | PROVIDERS: Visit Provider Physician Assistant Medical | DX: F07.81 Postconcussional syndrome (principal); S16.1XXD Strain of muscle, fascia and tendon at neck level, subsequent encounter; W50.0XXD Accidental hit or strike by another person, subsequent encounter | CPT/HCPCS: 99214 ==

== ENCOUNTER → 2025-01-11 11:59 | Outpatient (BNVA) | payer OTHER, SELFPAY | PROVIDERS: Visit Provider Physician Assistant Medical | DX: F07.81 Postconcussional syndrome (principal); S16.1XXD Strain of muscle, fascia and tendon at neck level, subsequent encounter; W50.0XXD Accidental hit or strike by another person, subsequent encounter | CPT/HCPCS: 99213 ==

== ENCOUNTER → 2025-01-25 13:50 | Outpatient (BNVA) | payer OTHER, SELFPAY | PROVIDERS: Visit Provider Physician Assistant Medical | DX: F07.81 Postconcussional syndrome (principal); S16.1XXD Strain of muscle, fascia and tendon at neck level, subsequent encounter; X50.0XXD Overexertion from strenuous movement or load, subsequent encounter | CPT/HCPCS: 99213 ==

== ENCOUNTER → 2025-02-15 11:05 | Outpatient (BNVA) | payer OTHER, SELFPAY | PROVIDERS: Visit Provider Physician Assistant Medical | DX: F07.81 Postconcussional syndrome (principal) | CPT/HCPCS: 99213 ==

== ENCOUNTER → 2025-03-28 13:32 | Outpatient (BNVA) | payer OTHER, SELFPAY | PROVIDERS: Visit Provider Physician Assistant Medical | DX: M54.2 Cervicalgia (principal); F07.81 Postconcussional syndrome | CPT/HCPCS: 99213 ==

== ENCOUNTER → 2025-04-12 14:35 | Outpatient (BNVA) | payer OTHER, SELFPAY | PROVIDERS: Visit Provider Physician Assistant Medical | DX: M54.81 Occipital neuralgia (principal); F07.81 Postconcussional syndrome; M54.2 Cervicalgia | CPT/HCPCS: 99213 ==

== ENCOUNTER 2025-04-13 10:11 | Outpatient (AMB) | payer OTHER, SELFPAY ==
[2025-04-13 10:13] VITALS: BP 129/64; PULSE 60; RESP 15; O2SAT 99; BMI 27.6
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
== END 2025-04-13 11:00 | disposition home or self-care (01) ==
PROVIDERS: PCP Nurse Practitioner Primary Care; Visit Provider Registered Nurse Emergency
DX: M54.81 Occipital neuralgia (principal); F07.81 Postconcussional syndrome
CPT/HCPCS: 99204; G2211

== ENCOUNTER → 2025-04-13 10:11 | Outpatient (BNVA) | payer OTHER, SELFPAY | PROVIDERS: PCP Nurse Practitioner Primary Care; Visit Provider Registered Nurse Emergency | DX: M54.81 Occipital neuralgia (principal); F07.81 Postconcussional syndrome | CPT/HCPCS: 99202 ==

== ENCOUNTER 2025-04-20 12:13 | Outpatient (AMB) | payer OTHER, SELFPAY ==
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
[2025-04-20 12:15] VITALS: BP 127/63; PULSE 62; RESP 16; O2SAT 98; BMI 27.6
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
== END 2025-04-20 12:55 | disposition home or self-care (01) ==
LOC: HO.PMC 12:13
PROVIDERS: PCP Nurse Practitioner Primary Care; Visit Provider Internal Medicine
DX: M54.81 Occipital neuralgia (principal)
CPT/HCPCS: 64405; 64450

== ENCOUNTER → 2025-04-20 12:13 | Outpatient (BNVA) | payer OTHER, SELFPAY | PROVIDERS: PCP Nurse Practitioner Primary Care; Visit Provider Internal Medicine | DX: M54.81 Occipital neuralgia (principal); F07.81 Postconcussional syndrome | CPT/HCPCS: 64405; 64450 ==

== ENCOUNTER → 2025-05-01 12:24 | Outpatient (BNVA) | payer OTHER, SELFPAY | PROVIDERS: PCP Nurse Practitioner Primary Care; Visit Provider Physician Assistant Medical | DX: M54.81 Occipital neuralgia (principal); M54.2 Cervicalgia; F07.81 Postconcussional syndrome; R51.9 Headache, unspecified; R53.83 Other fatigue | CPT/HCPCS: 99213 ==

== ENCOUNTER → 2025-05-29 09:33 | Outpatient (BNVA) | payer OTHER, SELFPAY | PROVIDERS: PCP Nurse Practitioner Primary Care; Visit Provider Physician Assistant Medical | DX: M54.81 Occipital neuralgia (principal); F07.81 Postconcussional syndrome; M54.2 Cervicalgia | CPT/HCPCS: 99213 ==

== ENCOUNTER → 2025-06-26 13:20 | Outpatient (BNVA) | payer OTHER, SELFPAY | PROVIDERS: PCP Nurse Practitioner Primary Care; Visit Provider Physician Assistant Medical | DX: M54.81 Occipital neuralgia (principal); M54.2 Cervicalgia; F07.81 Postconcussional syndrome | CPT/HCPCS: 99213 ==

== ENCOUNTER → 2025-08-01 10:14 | Outpatient (BNVA) | payer OTHER, SELFPAY | PROVIDERS: Visit Provider Emergency Medicine | DX: M54.81 Occipital neuralgia (principal); F43.10 Post-traumatic stress disorder, unspecified; F07.81 Postconcussional syndrome | CPT/HCPCS: 99214 ==

== ENCOUNTER → 2025-08-27 10:23 | Outpatient (BNVA) | payer OTHER, SELFPAY | PROVIDERS: PCP Nurse Practitioner Primary Care; Visit Provider Emergency Medicine | DX: M54.81 Occipital neuralgia (principal); F07.81 Postconcussional syndrome; F43.10 Post-traumatic stress disorder, unspecified; W50.0XXD Accidental hit or strike by another person, subsequent encounter | CPT/HCPCS: 99214 ==

== ENCOUNTER 2025-09-06 17:09 | Emergency (ER) | payer OTHER, SELFPAY ==
--- OUTSIDE RECORDS SUMMARY | 2023-08-26 10:29 | XMS_ITS | Encounter Summary ---
Author Organization [facility] Address [address] [place] [address] Care Team Providers Care Automatic Pad Making Machine Operator Name Role Phone Aditi Constantino APRN Primary Care Provider [phone] Encounter Details Date Type Department Care Team (Late st Contact Info) Description 08/26/2023 10:29 AM EDT Hospital Encounter [facility] [address] [place] [phone] Dave Jordan MD [address] [place] [address] Social History Tobacco Use Types Packs/Day Years [...] 09/04/2024 5:06 PM [place] Aditi Constantino APRN Moving or speaking so [...] on filedocumented in this encounter Care Teams Automatic Pad Making Machine Operator Relationship Specialty Start Date End Date Aditi Constantino, TONIE [address] [place] [address] PCP - General 11/17/22 documented as of this encounter
--- NOTE | ~2025-09-06 | CT_ITS ---
CLINICAL HISTORY: seizure? tremors CT head without contrast Comparison: 11/21/2024 01:28 PM EST Findings: No acute intracranial fluid collection or hematoma. No acute process in sinuses or mastoids. No acute bony abnormality. Impression: No acute intracranial process This document has been electronically signed by: Chucky Baig MD on 09/06/2025 19:09:30
[2025-09-06 17:46] VITALS: BP 150/81; PULSE 81; RESP 20; TEMP 37; O2SAT 99; BMI 25.9
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
[2025-09-06 18:50] LABS: MANUAL DIFF FLAG NO
--- OUTSIDE RECORDS SUMMARY | 2025-09-06 18:56 | XMS_ITS | Encounter Summary ---
Author Organization [facility] Address [address] [place] [address] Care Team Providers Care Inspector Machine Cut Glass Name Role Phone Aditi Constantino Primary Care Provider [phone] Encounter Details Date Type Department Care Team Description 01/05/2020 Records Encounter HIM OFFICE [address] [place], [place] [id number] Provider, Not In System Social History Tobacco [...] on filedocumented in this encounter Care Teams Inspector Machine Cut Glass Relationship Specialty Start Date End Date Aditi Constantino [address] [place] [address] PCP - General Family Medicine 01/27/24 documented as of this encounter
--- OUTSIDE RECORDS SUMMARY | 2025-09-06 18:56 | XMS_ITS | Encounter Summary ---
Author Organization [facility] Address [address] [place] [address] Care Team Providers Care Textile Chemist Name Role Phone Aditi Constantino APRN Primary Care Provider [phone] Encounter Details Date Type Department Care Team (Late st Contact Info) Description 05/08/2025 Scanned Document [facility] Department of Internal Medicine [address] [place] [address] Aditi Constantino APRN [address] [place] [address] Social History Tobacco Use Types Packs/Day Years [...] on filedocumented in this encounter Care Teams Textile Chemist Relationship Specialty Start Date End Date Aditi Constantino APRN [address] [place] [address] PCP - General 11/17/22 documented as of this encounter
--- OUTSIDE RECORDS SUMMARY | 2025-09-06 18:56 | XMS_ITS ---
[facility] Name [facility] Organization Unknown Results Test Name/Text Value Interpretation Date Range Source HCT VFR BLD AUTO 34.6 % Below low normal 01/28/2024 37 - 47 [facility] HGB BLD MCNC 11.4 g/dL Below low normal 01/28/2024 12.5 - 16 [facility] BLOOD BANK CMNT PATIENT-IMP Testing performed at [facility], [address] [place] [address] Rd[address] [place] [address], Tata Max M.D. Administration Intern, [facility] [id number] HP 0358 Normal 01/28/2024 [facility] ABO+RH GP BLD A POSITIVE Normal 01/28/2024 [facility] BLD GP AB SCN SERPL QL NEGATIVE Normal 01/28/2024 [facility] PT TIME PPP 13.6 sec Above high normal 01/28/2024 10.5 - 13 .3 [facility] INR PPP 1.1 Normal 01/28/2024 0.8 - 1.1 [facility] LACTATE SERPL SCNC 0.6 mmol/L Normal 01/28/2024 0.5 - 2 [facility] HCG PREG SERPL QL NEGATIVE Normal 01/28/2024 [facility] LIPASE SERPL CCNC 23.0 U/L Normal 01/28/2024 11 - 82 [facility] BILIRUB DIRECT SERPL MCNC 0.1 mg/dL Normal 01/28/2024 0 - 0.2 [facility] BILIRUB SERPL MCNC 0.8 mg/dL Normal 01/28/2024 0.3 - 1 [facility] SQUAMOUS NO./AREA URNS LPF 3.0 /LPF Normal 01/28/2024 0 - 5 [facility] WBC number/area UrnS Auto 2.0 /HPF Normal 01/28/2024 0 - 5 [facility] RBC number/area UrnS Auto >20 Above high normal 01/28/2024 0 - 3 [facility] ALP SERPL-CCNC 40.0 U/L Normal 01/28/2024 34 - 104 [facility] AST SERPL CCNC 15.0 U/L Normal 01/28/2024 5 - 40 [facility] LDH SERPL L TO P CCNC 138.0 U/L Normal 01/28/2024 125 - 220 [facility] ALT SERPL CCNC 10.0 U/L Normal 01/28/2024 7 - 52 [facility] FLUBV RNA Nph Ql ADEOLA+non-probe NEGATIVE Normal 01/28/2024 [facility] RSV RNA Nph Ql ADEOLA+non-probe NEGATIVE Normal 01/28/2024 [facility] Service [facility] XXX-Imp Cepheid GeneXpert (RT-PCR) [facility] Normal 01/28/2024 [facility] FLUAV RNA Nph Ql ADEOLA+non-probe NEGATIVE Normal 01/28/2024 [facility] SPECIMEN SOURCE XXX NASOPHARYNGEAL Normal 01/28/2024 [facility] IMMATURE GRANULOCYTE, ABSOLUTE 0.05 k/uL Normal 01/28/2024 - 0.1 [facility] RBC NO. BLD AUTO 4.26 M/uL Normal 01/28/2024 4.2 - 5.4 [facility] HCT VFR BLD AUTO 36.9 % Below low normal 01/28/2024 37 - 47 [facility] MCV RBC AUTO 86.6 fL Normal 01/28/2024 78 - 100 [facility] MCH RBC QN AUTO 29.3 pg Normal 01/28/2024 25 - 33 [facility] MONOCYTES NO. BLD AUTO 0.9 K/uL Above high normal 01/28/2024 0 - 0.8 [facility] WBC NO. BLD AUTO 10.7 K/uL Above high normal 01/28/2024 4 - 10.5 [facility] PLATELET NO. BLD AUTO 193.0 K/uL Normal 01/28/2024 150 - 450 [facility] HGB BLD MCNC 12.5 g/dL Normal 01/28/2024 12.5 - 16 [facility] LYMPHOCYTES NO. BLD AUTO 0.9 K/uL Below low normal 01/28/2024 1 - 3.2 [facility] EOSINOPHIL NO. BLD AUTO 0.0 K/uL Normal 01/28/2024 0 - 0.5 [facility] PMV BLD AUTO 11.9 fL Above high normal 01/28/2024 7.4 - 11 .4 [facility] BASOPHILS NFR BLD AUTO 0.2 % Normal 01/28/2024 0 - 2 [facility] BASOPHILS IN BLOOD BY AUTOMATED COUNT 0.0 K/uL Normal 01/28/2024 0 - 0.2 [facility] MCHC RBC AUTO MCNC 33.9 g/dL Normal 01/28/2024 32 - 36 [facility] RDW RBC AUTO RTO 13.3 % Normal 01/28/2024 12.1 - 16.2 [facility] EOSINOPHIL NFR BLD AUTO 0.4 % Normal 01/28/2024 0 - 6 [facility] NUCLEATED RBC 0.0 % Normal 01/28/2024 0 - 1 [facility] LYMPHOCYTES NFR BLD AUTO 8.2 % Below low normal 01/28/2024 20 - 48 [facility] IMMATURE GRANULOCYTE, PERCENT 0.5 % Normal 01/28/2024 0 - 1 [facility] NEUTROPHILS NFR BLD AUTO 82.4 % Above high normal 01/28/2024 44 - 74 [facility] MONOCYTES NFR BLD AUTO 8.3 % Normal 01/28/2024 2 - 12 [facility] NEUTROPHILS NO. BLD AUTO 8.8 K/uL Above high normal 01/28/2024 1.8 - 7.8 [facility] pH Ur Strip.auto 7.0 Normal 01/28/2024 4.5 - 8 [facility] Nitrite Ur Ql Strip.auto NEGATIVE Normal 01/28/2024 - [facility] Prot Ur Ql Strip.auto 30.0 mg/dL Abnormal 01/28/2024 - [facility] Sp Gr Ur Strip.auto 1.015 Normal 01/28/2024 1.005 - 1.03 [facility] Clarity Ur Refract.auto CLOUDY Normal 01/28/2024 [facility] Glucose Ur Ql Strip.auto NEGATIVE Normal 01/28/2024 - [facility] Leukocyte esterase Ur Ql Strip.auto TRACE Abnormal 01/28/2024 - [facility] Hgb Ur Ql Strip.auto LARGE Abnormal 01/28/2024 - [facility] Ketones Ur Ql Strip.auto >80 Abnormal 01/28/2024 - [facility] SPECIMEN SOURCE XXX URINE CLEAN CATCH Normal 01/27/2024 [facility] AMYLASE SERPL CCNC 49.0 U/L Normal 01/28/2024 29 - 103 [facility] MAGNESIUM SERPL MCNC 1.9 mg/dL Normal 01/28/2024 1.7 - 2.8 [facility] HCO3 SER SCNC 25.0 mmol/L Normal 01/28/2024 24 - 32 [facility] ANION GAP SERPL SCNC 10.0 mmol/L Normal 01/28/2024 5 - 14 [facility] GLUCOSE SERPL MCNC 97.0 mg/dL Normal 01/28/2024 70 - 199 [facility] POTASSIUM SERPL SCNC 3.6 mmol/L Normal 01/28/2024 3.5 - 5.1 [facility] SODIUM SERPL SCNC 138.0 mmol/L Normal 01/28/2024 135 - 14 5 [facility] CREAT SERPL MCNC 0.7 mg/dL Normal 01/28/2024 0.5 - 1 [facility] CHLORIDE SERPL SCNC 103.0 mmol/L Normal 01/28/2024 98 - 107 [facility] CALCIUM SERPL MCNC 9.1 mg/dL Normal 01/28/2024 8.4 - 10.2 [facility] BUN SERPL MCNC 11.0 mg/dL Normal 01/28/2024 7 - 17 [facility] History of Medication Use Medication Directions Dispensed Refills Start Date End Date Stat acetaminophen (TYLENOL) tablet 975 mg 975 mg, Oral, Every 6 hours, First dose on Wed01/28/24 at 1315, For 3 doses 01/28/2024 4 active ibuprofen tablet 600 mg 600 mg, Oral, Every 6 hours, First dose on Wed01/28/24 at 1615, For 3 dosesDo not administer within 6 hours of ketorolac. 01/28/2024 active cefTRIAXone (ROCEPHIN) injection 1,000 mg 1,000 mg, Intravenous, Once, On Tanna 01/27/24 at 2130, For 1 doseIf ordered IV then reconstitute with 10 mL sterile water or normal saline and administer IV push over 3 to 5 minutes. 01/28/2024 completed HYDROmorphone (DILAUDID) injection 0.25 mg 0.25 mg, Intravenous, Every 4 hours PRN, mild pain (1-3), Starting on Wed01/28/24 at 0113Administer IV push over 2-3 minutes. 01/28/2024 4 aborted iopamidol (ISOVUE-370) 76 % injection 0-150 mL 0-150 mL, Intravenous, IMG once as needed, contrast, Starting on Tanna 01/27/24 at 2105, For 1 dose, Radiology Contrast 01/28/2024 4 completed ketorolac (TORADOL) injection 30 mg 30 mg, Intravenous, Once, On Tanna 01/27/24 at 2015, For 1 dose 01/28/2024 4 completed lactated ringers infusion 100 mL/hr, Intravenous, Continuous, Starting on Wed01/28/24 at 0115 01/28/2024 4 aborted metroNIDAZOLE (FLAGYL) IVPB 500 mg 500 mg, Intravenous, at 100 mL/hr, Every 8 hours, First dose on Wed01/28/24 at 0600, For 24 hours 01/28/2024 aborted morphine sulfate injection 4 mg 4 mg, Intravenous, Once, On Wed01/27/24 at 2315, For 1 dose 01/28/2024 4 completed ondansetron (ZOFRAN) injection 4 mg 4 mg, Intravenous, Every 6 hours PRN, nausea, vomiting, Starting on Wed01/28/24 at 0113IV push over 2 to 5 minutes. 01/28/2024 active sodium chloride 0.9% bolus (NS) 1,000 mL 1,000 mL, Intravenous, at 500 mL/hr, Once, On Tanna 01/27/24 at 2015, For 1 dose 01/28/2024 4 completed oxyCODONE (ROXICODONE) 5 MG immediate release tablet Take 1 tablet (5 mg total) by mouth every 6 (six) hours as needed. 01/28/2024 active sertraline (ZOLOFT) 50 MG tablet Take 1 tablet (50 mg total) by mouth daily. 08/23/2023 active No known medications No known medications active sertraline (ZOLOFT) 50 MG tablet Take 1 tablet (50 mg total) by mouth daily. active Problems Problem Status Onset Date Problem Type Date of Resolution Source Acute appendicitis with localized peritonitis, without perforation or gangrene active 2024-01-27 ProblemAct [facility] Acute appendicitis active EncounterDiagnosisAct [facility] Inversion sprain of right ankle active 2020-08-28 ProblemAct [facility] History of active 2020-01-26 ProblemAct [facility] Appendicitis [facility] Pyelonephritis active 2013-10-[address] Vitamin B12 deficiency active 2023-08-23 ProblemAct [facility] Insomnia active 2023-08-23 ProblemAct [facility] Asthma active 2019-06-28 ProblemAct [facility] Splenomegaly active 2023-08-23 ProblemAct [facility] Acute right ankle pain [facility] Anxiety and depression active 2023-08-23 ProblemAct [facility] Abrasion of left knee, initial encounter active [facility] Vitamin D deficiency active 2023-08-23 ProblemAct [facility] Sprain of right ankle, unspecified ligament, initial encounter active EncounterDiagnosisAct [facility] History of kidney disease active 2023-08-23 ProblemAct [facility] Hepatic steatosis active 2023-08-23 ProblemAct [facility] Immunizations Vaccine Date Source Lot Number Status Tdap 12/04/2019 [facility] [id number] completed Influenza, Quadrivalent (FLU ARIX, AFLURIA, FLULAVAL, FLUZONE) Preservative Free IM 09/29/2019 [facility] [id number] completed Encounters Encounter Type Encounter Reason Primary Diagnosis Location Date Ambulatory Rash Rash [email or web address] 03/30/2025 Ambulatory Cough Cough [email or web address] 2025 Ambulatory Follow-up Follow-up [email or web address] 12/05/2024 Ambulatory [facility] 10/16/2024 Ambulatory Encounter for general adult medical examination without abnormal findings Encounter for general adult medical examination without abnormal findings [facility] 09/04/2024 Ambulatory Unspecified appendicitis Unspecified appendicitis [facility] 01/27/2024 Ambulatory [facility] 08/26/2023 Ambulatory Pain in right ankle and joints of right foot Pain in right ankle and joints of right foot [facility] 08/26/2023 Ambulatory Anxiety disorder, unspecified Anxiety disorder, unspecified [facility] 08/23/2023 Ambulatory Contact with and (suspected) exposure to covid-19 [facility] 08/12/2021 Care Team Organization Name Specialty Phone Email Start Date End Da te [facility] Primary Care 02/16/2025 04/28/2025 [facility] 202307/17/2025 [facility] 202305/22/2025 [facility] 01/27/2024 [facility] ARIELA Primary Care 2023 [facility] Jose Constantino Primary Care 08/23/2023 04/28/2025 [facility] JOSE CONSTANTINO Primary Care 08/23/2023 09/21/2023 [facility] 12/01/2022 07/09/2025 [facility] 08/10/2022 [facility] PCP,No Primary Care 08/13/2021 04/28/2025 [facility] NO PCP Primary Care 08/12/2021 08/12/2021 [facility], [facility]
--- OUTSIDE RECORDS SUMMARY | 2025-09-06 18:56 | XMS_ITS | Encounter Summary ---
Author Organization [facility] Address [address] [place] [address] Care Team Providers Care Integration Aide Name Role Phone Aditi Constantino APRN Primary Care Provider Encounter Details Date Type Department Care Team (Late st Contact Info) Description 01/27/2024 Scanned Document [facility] Department of Internal Medicine [place] [address] [place] [address] Aditi Constantino APRN [address] [place] [address] Social History Tobacco Use Types Packs/Day Years Used Date Smoking Tobacco: Never Assessed PHQ-2 Answer Date Recorded PHQ-2 Total Score 3 08/23/2023 Comments Unknown Sex and Gender Information Value Date Recorded Sex Assigned at Female 08/26/2023 9:29 AM EDT Legal Sex Female 12:58 PM EDT Gender Identity Not on file Sexual Orientation Not on file documented as of this encounter Plan of Treatment Not on file documented as of this encounter Visit Diagnoses Not on filedocumented in this encounter Care Teams Integration Aide Relationship Specialty Start Date End Date Aditi Constantino APRN [address] [place] [address] PCP - General 11/17/22 documented as of this encounter
--- OUTSIDE RECORDS SUMMARY | 2025-09-06 18:56 | XMS_ITS | Encounter Summary ---
Author Organization [facility] Address [address] [place] [address] Care Team Providers Care Supervisor Post Wave Name Role Phone Aditi Constantino APRN Primary Care Provider [phone] Encounter Details Date Type Department Care Team (Late st Contact Info) Description 04/20/2025 Scanned Document [facility] Department of Internal Medicine [address] [place] [address] Aditi Constantino APRN [address] [place] [address] Social History Tobacco Use Types Packs/Day Years [...] on filedocumented in this encounter Care Teams Supervisor Post Wave Relationship Specialty Start Date End Date Aditi Constantino APRN [address] [place] [address] PCP - General 11/17/22 documented as of this encounter
--- OUTSIDE RECORDS SUMMARY | 2025-09-06 18:56 | XMS_ITS | Clinical Summary ---
Author Organization [facility] Address [address] [place] [address] Care Team Providers Care Specialty Manufacturing Supervisor Name Role Phone Aditi Constantino Primary Care Provider [phone] Allergies No known active allergies Medications Medication [...] 57 02/07/2024 1:39 PM EDT Temperature 37.1 C (98.8 F) 01/28/2024 6:00 PM EDT Respiratory Rate 12 01/28/2024 6:00 PM EDT [...] BMI Counseling 08/28/2021 08/28/2020 Influenza Vaccine (#1) 2025 09/29/2019, 2008 DTap / Tdap / Td [...] Advance Directives For more information, please contact: [phone] Latest Code Status on File Code Status [...] way: discussion with patient . Care Teams Specialty Manufacturing Supervisor Relationship Specialty Start Date End Date Aditi Constantino [address] [place] [address] PCP - General Family Medicine 01/27/24
--- OUTSIDE RECORDS SUMMARY | 2025-09-06 18:56 | XMS_ITS | Clinical Summary ---
Author Organization [facility] Address [address] [place] [address] Care Team Providers Care Truck Striker Name Role Phone Aditi Constantino NP Primary Care Provider [phone] Surgical History Surgery Date Site/Laterality Comments URETERAL REIMPLANTION PROCEDURE:URETERAL REIMPLANTION SECTION 01/23/2020 N/A PROCEDURE: SECTION;COMMENT:Procedure: OB SECTION; Surgeon: Chucky Gruber MD; Location: [facility] DELIVERY ROOM; Service: Obstetrics; Laterality: N/A; APPENDECTOMY 01/28/2024 N/A PROCEDURE:APPENDECTOMY;COMMENT:Proced ure: LAPAROSCOPY APPENDECTOMY; Surgeon: Dhruv Ulloa MD; Location: [facility]; Service: General; Laterality: N/A; Medical History Medical History Date Comments Asthma DX:Asthma Oligohydramnios DX:Oligohydramni os Social History Tobacco Use Types Packs/Day Years Used Date Smoking Tobacco: Never Smokeless Tobacco: Never Alcohol Use Standard Drinks/Week Comments No 0 (1 standard drink = 0.6 oz pur e alcohol) Comments Unknown Sex and Gender Information Value Date Recorded Sex Assigned at Not on file Legal Sex Female 9:28 AM EST Gender Identity Not on file [...] Cervical Cancer Screening: P ap Smear 02/11/2017 HIV Screening 10/11/2022 Hepatitis C Screening 10/11/2022 Social Influencers of Health Screening 10/11/2022 HPV Vaccines (1 - 3-dose SCD M series) 02/11/2023 Depression Screening 11/08/2024 COVID-19 Vaccine (1 - 2023-2 5 season) 2025 Influenza Vaccine (#1) 2025 RSV Immunization Adult Patie nts (1 - 1-dose 75+ series) 02/11/2071 HIB Vaccines Aged Out No longer eligi [...] patient's age to complete this topic Meningococcal B Vaccine Aged Out No l onger eligible based on patient's age to complete this topic Pneumococcal Vaccine: Pediat rics (0 to 5 Years) and At-Risk Patients (6 to 49 Years) Aged Out No longer eligible b ased on patient's age to complete this topic RSV Immunization Patients Un russell 20 months Aged Out No longer eligible b ased on patient's age to complete this topic Varicella Vaccines Aged Out No longer eligible based on patient's age to complete this topic Care Teams Truck Striker Relationship Specialty Start Date End Date Aditi Constantino NP [address] [place], [place] PCP - General 01/27/24
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
--- OUTSIDE RECORDS SUMMARY | 2025-09-06 18:56 | XMS_ITS | Encounter Summary ---
Author Organization [facility] Address [address] [place] [address] Care Team Providers Care Backbreaker Name Role Phone Aditi Constantino APRN Primary Care Provider [phone] Encounter Details Date Type Department Care Team (Late st Contact Info) Description 02/07/2024 Scanned Document [facility] Department of Internal Medicine [place] [address] [facility] [address] [place] [address] Aditi Constantino APRN [address] [place] [address] Social History Tobacco Use Types Packs/Day Years [...] on filedocumented in this encounter Care Teams Backbreaker Relationship Specialty Start Date End Date Aditi Constantino APRN [address] [place] [address] PCP - General 11/17/22 documented as of this encounter
--- OUTSIDE RECORDS SUMMARY | 2025-09-06 18:56 | XMS_ITS | Encounter Summary ---
Author Organization [facility] Address [address] [place] [address] Care Team Providers Care Scouring Train Operator Chief Name Role Phone Aditi Constantino Primary Care Provider [phone] Encounter Details Date Type Department Care Team Description 01/11/2020 Records Encounter HIM OFFICE [address] [place], [place] [id number] Provider, Not In System Social History Tobacco [...] on filedocumented in this encounter Care Teams Scouring Train Operator Chief Relationship Specialty Start Date End Date Aditi Constantino [address] [place] [address] PCP - General Family Medicine 01/27/24 documented as of this encounter
--- OUTSIDE RECORDS SUMMARY | 2025-09-06 18:56 | XMS_ITS | Clinical Summary ---
Author Organization [facility] Address [address] [place] [address] Care Team Providers Care Patient Sitter Name Role Phone Esau Moctezuma MD Primary Care Provider [phone] Source Comments Please note that some or [...] so, obtain the minor's consent prior to disclosure.[facility] Allergies No known active allergies Active [...] Vaccine ( - 2023-2 5 season) 2025 INFLUENZA (#1) 2025 NIRSEVIMAB VACCINES UNDER 8 MONTHS Aged Out No longer eligible based on patient's age to complete this topic Insurance [facility] Care Teams Patient Sitter Relationship Specialty Start Date End Date Esau Moctezuma MD PCP - General 10/05/12
--- OUTSIDE RECORDS SUMMARY | 2025-09-06 18:56 | XMS_ITS | Clinical Summary ---
Author Organization [facility] Address [address] [place] [address] Care Team Providers Care Research Chemical Engineer Name Role Phone Esau Moctezuma MD [...] breast lump 04/25/2015 Overview (12/12/2023): Impression - [id number]: Pt. with left breast mass will obatin u/s to assess and likely refer to surgery for consult. Anxiety 04/09/2014 Immunizations Immunization Administration Dates Next Due DTP-Hib 07/06/2006,1996,1996 DTaP 03/16/2000,08/17/1997 HPV4 (Gardasil 4) 07/05/2008,03/05/2008,03/01/20 07 Hep B (adult) 1996,1996,1996 Hib (HbOC) 05/16/1997 IPV 03/16/2000 Influenza,split(incl.purifie d surface antigen) 07/17/2013,10/14/2004,09/10/2003,08/31,11/05/2001,09/17/2001 MMR 03/16/2000,05/16/1997 Meningococcal ACWY (Menactra) 03/05/2008 Meningococcal MPSV4 (Menomune) 07/12/2012 OPV, Trivalent (Admin Before 02/07/2016) 7,1996,1996 State H1N1 Vaccine,injection 09/20/2009 Tdap 07/17/2013,03/01/2007 Varicella [...] Additional history exists COVID-19 Vaccine ( season) 2025 Influenza (#1) 2025 07/17/2013, 05/2004, 09/10/2003, Additional history exists Zoster (Shingrix) [...] age to complete this topic Care Teams Research Chemical Engineer Relationship Specialty Start Date End Date Esau Moctezuma MD PCP - General 06/14/23 Esau Moctezuma MD PCP - Backup PCP Pediatrics 12/09/23
--- OUTSIDE RECORDS SUMMARY | 2025-09-06 18:56 | XMS_ITS | Encounter Summary ---
Author Organization [facility] Address [address] [place] [address] Care Team Providers Care Inseam Trimmer Name Role Phone Aditi Constantino APRN Primary Care Provider [phone] Encounter Details Date Type Department Care Team (Late st Contact Info) Description 11/30/2024 Scanned Document [facility] Department of Internal Medicine [address] [place] [address] Aditi Constantino APRN [address] [place] [address] Social History Tobacco Use Types Packs/Day Years [...] on filedocumented in this encounter Care Teams Inseam Trimmer Relationship Specialty Start Date End Date Aditi Constantino APRN [address] [place] [address] PCP - General 11/17/22 documented as of this encounter
[2025-09-06 18:58] LABS: Hematocrit 41.6 % (37.0-47.0); Hemoglobin 14.0 g/dl (12.0-16.0); Imm Gran Abs Auto 0.02 X10*3/uL (0.00-0.03); Imm Gran Pct Auto 0.3 % (0.0-0.4); Lymphocytes Absolute Auto 2.0 X10*3/uL (1.2-4.9); Mean Corpuscular HGB Conc 33.7 g/dl (31.0-35.0); Mean Corpuscular Hemoglobin 28.9 pg (27.0-33.0); Mean Corpuscular Volume 86.0 fL (80.0-98.0); NRBC Abs Auto 0.000 X10*3/uL (0.0-0.012); NRBC Pct Auto 0.0 /100WBC (0.0-0.2); Platelet Count 219 X10*3/uL (160-400); Red Blood Count 4.84 X10*6/uL (4.20-5.50); White Blood Count 5.8 X10*3/uL (4.8-10.8)
[2025-09-06 19:05] LABS: Alanine Aminotransferase 34 U/L (0-31); Albumin Level 4.7 g/dL (3.5-5.0); Alkaline Phosphatase 53 U/L (39-117); Anion Gap 12 (12-20); Aspartate Amino Transferase 35 U/L (5-31); Blood Urea Nitrogen 12 mg/dL (9-16); Calcium 9.4 mg/dL (8.4-10.2); Carbon Dioxide 26 mmol/L (22-29); Chloride 107 mmol/L (96-108); Creatinine Clr Calc Pharmacy 113.4; Estimated Glomerular Filt Rate > 60; Magnesium 2.1 mg/dL (1.6-2.6); Potassium 4.4 mmol/L (3.3-5.1); Sodium 141 mmol/L (135-145); Total Protein 7.9 g/dL (6.5-8.0)
[2025-09-06 19:14] VITALS: BP 132/78; PULSE 73; RESP 16; TEMP 36.7; O2SAT 99
[2025-09-06 19:47] VITALS: BP 132/78; PULSE 73; RESP 16; TEMP 36.7; O2SAT 99
== END 2025-09-06 19:47 | disposition home or self-care (01) ==
PROVIDERS: Physician Assistant; Emergency Provider Student in an Organized Health Care Education/Training Program; PCP Nurse Practitioner Primary Care
DX: R56.9 Unspecified convulsions (principal); R32 Unspecified urinary incontinence; R51.9 Headache, unspecified; M54.81 Occipital neuralgia; R10.22 Pelvic and perineal pain left side; G83.21 Monoplegia of upper limb affecting right dominant side; Z87.820 Personal history of traumatic brain injury; Z79.899 Other long term (current) drug therapy; Z51.81 Encounter for therapeutic drug level monitoring
CPT/HCPCS: 36415; 70450; 80053; 80307; 83735; 84702; 85025; 99284

== ENCOUNTER → 2025-09-06 17:57 | Outpatient (BNV) | payer OTHER, SELFPAY | PROVIDERS: Emergency Provider Student in an Organized Health Care Education/Training Program; PCP Nurse Practitioner Primary Care; Visit Provider Radiology Diagnostic Radiology | DX: R56.9 Unspecified convulsions (principal) | CPT/HCPCS: 70450 ==

== ENCOUNTER → 2025-09-11 11:13 | Outpatient (BNVA) | payer OTHER, SELFPAY | PROVIDERS: PCP Nurse Practitioner Primary Care; Visit Provider Emergency Medicine | DX: R56.9 Unspecified convulsions (principal); H55.89 Other irregular eye movements; S06.0X0D Concussion without loss of consciousness, subsequent encounter; W50.0XXD Accidental hit or strike by another person, subsequent encounter | CPT/HCPCS: 99214 ==

== ENCOUNTER 2025-09-15 11:07 | Outpatient (REF) | payer OTHER, SELFPAY ==
--- OUTSIDE RECORDS SUMMARY | 2023-08-26 09:29 | XMS_ITS | Encounter Summary ---
Author Organization [facility]ly [facility] Address [address] [place] [address] Care Team Providers Care Highway Landscape Architect Name Role Phone Aditi Constantino APRN Primary Care Provider [phone] Encounter Details Date Type Department Care Team (Late st Contact Info) Description 08/26/2023 10:29 AM EDT Hospital Encounter [facility] [address] [place] [phone] Dave Jordan MD [address] [place] [address] Social History Tobacco Use Types Packs/Day Years Used Date Smoking Tobacco: Never Smokeless Tobacco: Never Alcohol Use Standard Drinks/Week Comments Never 0 (1 standard drink = 0.6 oz pur e alcohol) PHQ-2 Answer Date Recorded PHQ-2 Total Score 6 09/04/2024 Comments Unknown Sex and Gender Information Value Date Recorded Sex Assigned at Female 08/26/2023 9:29 AM EDT Legal Sex Female 12:58 PM EDT Gender Identity Not on file Sexual Orientation Not on file documented as of this encounter Functional Status * Over the past 2 weeks, how often have you been bothered by any of the following problems? Question Answer Date of Assessment Author Patient Health Questionnaire -2 Score 6 09/04/2024 5:06 PM EDT Aditi Constantino A PRN * Question Answer Date of Assessment Author Patient Health Questionnaire -9 Score 23 09/04/2024 5:06 PM EDT Aditi Constantino A PRN * Question Answer Date of Assessment Author PHQ-2 Total Score 6 09/04/2024 5:06 PM EDT Aditi Constantino APRN Little interest or pleasure in doing things Nearly every day 09/04/2024 5:06 PM EDT Aditi Constantino APRN Feeling down, depressed, or hopeless Nearly every day 09/04/2024 5:06 PM EDT Aditi Constantino APRN Trouble falling or staying asleep, or sleeping too much Nearly every day 09/04/2024 5:06 PM EDT Aditi Constantino APRN Feeling tired or having little energy Nearly every day 09/04/2024 5:06 PM [place] Aditi Constantino APRN Poor appetite or overeating Nearly every day 09/04/2024 5:06 PM EDT Aditi Constantino APRN Feeling bad about yourself - or that you are a failure or have let yourself or your family down More than half the days 09/04/2024 5:06 PM EDT Aditi Constantino APRN Trouble concentrating on things, such as reading the newspaper or watching television Nearly every day 09/04/2024 5:06 PM MRACELINOT Aditi Constantino APRN Moving or speaking so slowly that other people could have noticed? Or the opposite - being so fidgety or restless that you have been moving around a lot more than usual. Nearly every day 09/04/2024 5:06 PM [place] Aditi Constantino APRN Thoughts that you would be better off or hurting yourself in some way Not at all 09/04/2024 5:06 PM [place] Aditi Constantino APRN How difficult have these problems made it for you to do your work, take care of things at home, or get along with other people? Somewhat difficult 09/04/2024 5:06 PM [place] Aditi Constantino APRN PHQ-9 Total Score 23 09/04/2024 5:06 PM MARCELNIOT Aditi Constantino APRN documented as of this encounter Plan of Treatment Not on file documented as of this encounter Procedures Procedure Name Priority Date/Time Associated Diagnosis Comments XR ANKLE 3+ VIEWS-RIGHT STAT 08/26/2023 10:37 AM EDT Acute right ankle pain documented in this encounter Results * XR Ankle 3+ views-Right (08/26/2023 10:37 AM EDT) Anatomical Region Laterality Modality Ankle Right Computed Radiogr aphy 08/26/2023 10:3 8 AM EDT Impressions 08/26/2023 10:40 AM EDT Lateral ankle swelling. No fracture or malalignment. Narrative 08/26/2023 10:40 AM EDT AP, lateral, and oblique views of the ankle were obtained. No prior studies for comparison. HISTORY: right ankle tenderness med/lat, hx of fracture FINDINGS: There is lateral swelling. No evidence of fracture. The mortise is intact. Soft tissues are unremarkable. Procedure Note Heath Lynn MD - 08/26/2023 AP, lateral, and oblique views of the ankle were obtained. No priorstudies for comparison. HISTORY: right ankle tenderness med/lat, hx of fracture FINDINGS: There is lateral swelling. No evidence of fracture. Themortise is intact. Soft tissues are unremarkable. IMPRESSION: Lateral ankle swelling. No fracture or malalignment. us Omar MANTILLA [facility] ORDERAB LES Final Result documented in this encounter Visit Diagnoses Not on filedocumented in this encounter Care Teams Highway Landscape Architect Relationship Specialty Start Date End Date Aditi Constantino, TONIE [address] [place] [address] PCP - General 11/17/22 documented as of this encounter
--- NOTE | ~2025-09-15 | MR_ITS ---
CLINICAL HISTORY: CERVICALGIA, POST CONCUSSION SYNDROME MR cervical spine without gadolinium Comparison: None provided Findings: Normal vertebral body alignment. No significant degenerative changes. No acute fractures or pathologic bone lesions. Visualized intracranial contents are unremarkable. No cervical fluid collections or masses. Cervical cord normal. IMPRESSION: No acute findings. No significant spondylosis. No abnormal cord signal or evidence of cord compression. This document has been electronically signed by: Maria Teresa Read MD on 09/17/2025 22:57:31
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
--- OUTSIDE RECORDS SUMMARY | 2025-09-15 11:11 | XMS_ITS | Clinical Summary ---
Author Organization [facility] Address [address] [place] [address] Care Team Providers Care Transfer Agent Name Role Phone Esau Moctezuma MD Primary [...] breast lump 04/25/2015 Overview (12/12/2023): Impression - [id number]: Pt. with left breast mass will obatin [...] age to complete this topic Care Teams Transfer Agent Relationship Specialty Start Date End Date Esau Moctezuma MD PCP - General 06/14/23 Esau Moctezuma MD PCP - Backup PCP Pediatrics 12/09/23
--- OUTSIDE RECORDS SUMMARY | 2025-09-15 11:11 | XMS_ITS | Clinical Summary ---
Author Organization [facility] Address [address] [place] [address] Care Team Providers Care Garment Inspector Name Role Phone Aditi Constantino NP Primary Care Provider [phone] Surgical History Surgery Date Site/Laterality Comments URETERAL REIMPLANTION PROCEDURE:URETERAL REIMPLANTION SECTION 01/23/2020 N/A PROCEDURE: SECTION;COMMENT:Procedure: OB SECTION; Surgeon: Chucky Gruber MD; Location: [facility] DEL[facility]ERY RO[facility]; Service: Obstetrics; Laterality: N/A; APPENDECTOMY 01/28/2024 N/A PROCEDURE:APPENDECTOMY;COMMENT:Proced ure: LAPAROSCOPY APPENDECTOMY; Surgeon: Dhruv Ulloa MD; Location: [facility]; Service: General; Laterality: N/A; Medical [...] age to complete this topic Care Teams Garment Inspector Relationship Specialty Start Date End Date Aditi Constantino NP [address] [place], [place] PCP - General 01/27/24
--- OUTSIDE RECORDS SUMMARY | 2025-09-15 11:11 | XMS_ITS | Encounter Summary ---
Author Organization [facility] Address [address] [place] [address] Care Team Providers Care Senior Informatica Etl Developer Name Role Phone Aditi Constantino Primary Care Provider [phone] Encounter Details Date Type Department Care Team Description 01/05/2020 Records Encounter HIM OFFICE [address] [place], [place] [id number] Provider, Not In System Social History Tobacco [...] on filedocumented in this encounter Care Teams Senior Informatica Etl Developer Relationship Specialty Start Date End Date Aditi Constantino [address] [place] [address] PCP - General Family Medicine 01/27/24 documented as of this encounter
--- OUTSIDE RECORDS SUMMARY | 2025-09-15 11:11 | XMS_ITS | Clinical Summary ---
Author Organization [facility] Address [address] [place] [address] Care Team Providers Care Dinkey Locomotive Engineer Name Role Phone Aditi Constantino Primary Care Provider [phone] Allergies No known active allergies Medications Medication [...] Advance Directives For more information, please contact: [phone] Latest Code Status on File Code Status [...] way: discussion with patient . Care Teams Dinkey Locomotive Engineer Relationship Specialty Start Date End Date Aditi Constantino [address] [place] [address] PCP - General Family Medicine 01/27/24
--- OUTSIDE RECORDS SUMMARY | 2025-09-15 11:11 | XMS_ITS | Encounter Summary ---
Author Organization [facility] Address [address] [place] [address] Care Team Providers Care Carver Hand Name Role Phone Aditi Constantino APRN Primary Care Provider [phone] Encounter Details Date Type Department Care Team (Late st Contact Info) Description 04/20/2025 Scanned Document [facility] Department of Internal Medicine [address] [place] [address] Aditi Constantino APRN [address] [place] [address] Social History Tobacco Use Types Packs/Day Years [...] on filedocumented in this encounter Care Teams Carver Hand Relationship Specialty Start Date End Date Aditi Constantino APRN [address] [place] [id number] PCP - General 11/17/22 documented as of this encounter
--- OUTSIDE RECORDS SUMMARY | 2025-09-15 11:11 | XMS_ITS | Encounter Summary ---
Author Organization [facility] Address [address] [place] [address] Care Team Providers Care Warehouse Operations Manager Name Role Phone Aditi Constantino Primary Care Provider [phone] Encounter Details Date Type Department Care Team Description 01/11/2020 Records Encounter HIM OFFICE [address] [place], [place] [id number] Provider, Not In System Social History Tobacco [...] on filedocumented in this encounter Care Teams Warehouse Operations Manager Relationship Specialty Start Date End Date Aditi Constantino [address] [place] [address] PCP - General Family Medicine 01/27/24 documented as of this encounter
--- OUTSIDE RECORDS SUMMARY | 2025-09-15 11:11 | XMS_ITS | Clinical Summary ---
Author Organization [facility] Address [address] [place] [address] Care Team Providers Care Facility Maintenance Supervisor Name Role Phone Esau Moctezuma MD Primary Care Provider [phone] Source Comments Please note that some or [...] so, obtain the minor's consent prior to disclosure.[facility] Allergies No known active allergies Active [...] patient's age to complete this topic Insurance [facility] A Care Teams Facility Maintenance Supervisor Relationship Specialty Start Date End Date Esau Moctezuma MD PCP - General 10/05/12
--- OUTSIDE RECORDS SUMMARY | 2025-09-15 11:12 | XMS_ITS | Encounter Summary ---
Author Organization [facility] Address [address] [place] [address] Care Team Providers Care Diesel Stationary Engineer Name Role Phone Aditi Constantino APRN Primary Care Provider [phone] Encounter Details Date Type Department Care Team (Late st Contact Info) Description 01/27/2024 Scanned Document [facility] Department of Internal Medicine [place] [address] [place] [address] Aditi Constantino APRN [address] [place] [address] Social History Tobacco Use Types Packs/Day Years [...] on filedocumented in this encounter Care Teams Diesel Stationary Engineer Relationship Specialty Start Date End Date Aditi Constantino APRN [address] [place] [address] PCP - General 11/17/22 documented as of this encounter
--- OUTSIDE RECORDS SUMMARY | 2025-09-15 11:12 | XMS_ITS | Encounter Summary ---
Author Organization [facility] Address [address] [place] [address] Care Team Providers Care Motion Pictures Cartoonist Name Role Phone Aditi Constantino APRN Primary Care Provider [phone] Encounter Details Date Type Department Care Team (Late st Contact Info) Description 11/30/2024 Scanned Document [facility] Department of Internal Medicine [address] [place] [address] Aditi Constantino APRN [address] [place] [address] Social History Tobacco Use Types Packs/Day Years [...] on filedocumented in this encounter Care Teams Motion Pictures Cartoonist Relationship Specialty Start Date End Date Aditi Constantino APRN [address] [place] [address] PCP - General 11/17/22 documented as of this encounter
--- OUTSIDE RECORDS SUMMARY | 2025-09-15 11:12 | XMS_ITS | Encounter Summary ---
Author Organization [facility] Address [address] [place] [address] Care Team Providers Care Metal Filer Name Role Phone Aditi Constantino APRN Primary Care Provider [phone] Encounter Details Date Type Department Care Team (Late st Contact Info) Description 05/08/2025 Scanned Document [facility] Department of Internal Medicine [address] [place] [address] Aditi Constatnino APRN [address] [place] [address] Social History Tobacco Use Types Packs/Day Years [...] on filedocumented in this encounter Care Teams Metal Filer Relationship Specialty Start Date End Date Aditi Constantino APRN [address] [place] [address] PCP - General 11/17/22 documented as of this encounter
--- OUTSIDE RECORDS SUMMARY | 2025-09-15 11:12 | XMS_ITS | Encounter Summary ---
Author Organization [facility] Address [address] [place] [address] Care Team Providers Care Fermenting Cellar Dropper Name Role Phone Aditi Constantino APRN Primary Care Provider [phone] Encounter Details Date Type Department Care Team (Late st Contact Info) Description 02/07/2024 Scanned Document [facility] Department of Internal Medicine [place] [address] [facility] [address] [address] [place] [address] Aditi Constantino APRN [address] [place] [address] Social History Tobacco Use Types Packs/Day Years [...] on filedocumented in this encounter Care Teams Fermenting Cellar Dropper Relationship Specialty Start Date End Date Aditi Constantino APRN [address] [place] [address] PCP - General 11/17/22 documented as of this encounter
== END 2025-09-15 11:08 | disposition home or self-care (01) ==
LOC: HO.MRI 11:07
PROVIDERS: Visit Provider Emergency Medicine
DX: M54.2 Cervicalgia (principal); F07.81 Postconcussional syndrome
CPT/HCPCS: 72141

== ENCOUNTER → 2025-09-15 11:18 | Outpatient (BNV) | payer OTHER, SELFPAY | PROVIDERS: Visit Provider Student in an Organized Health Care Education/Training Program | DX: M54.81 Occipital neuralgia (principal) | CPT/HCPCS: 72141 ==

== ENCOUNTER → 2025-09-27 10:11 | Outpatient (BNVA) | payer OTHER, SELFPAY | PROVIDERS: Visit Provider Emergency Medicine | DX: S06.0X0D Concussion without loss of consciousness, subsequent encounter (principal); W50.0XXD Accidental hit or strike by another person, subsequent encounter; R56.9 Unspecified convulsions; R20.0 Anesthesia of skin | CPT/HCPCS: 99213 ==

== ENCOUNTER 2025-10-18 14:12 | Outpatient (REF) | payer OTHER, SELFPAY ==
--- OUTSIDE RECORDS SUMMARY | 2023-08-26 09:29 | XMS_ITS | Encounter Summary ---
Author Organization [facility] Address [address] [place] [address] Care Team Providers Care Communications Editor Name Role Phone Aditi Constantino APRN Primary Care Provider [phone] Encounter Details Date Type Department Care Team (Late st Contact Info) Description 08/26/2023 10:29 AM EDT Hospital Encounter [facility] [address] [place] [phone] Dave Jordan MD [address] [place] [address] Social History Tobacco Use Types Packs/Day Years [...] television Nearly every day 09/04/2024 5:06 PM [place]EL[place] Aditi Cosntantino APRN Moving or speaking so slowly that [...] PHQ-9 Total Score 23 09/04/2024 5:06 PM [place]EL[place] Aditi Constantino APRN documented as of this [...] on filedocumented in this encounter Care Teams Communications Editor Relationship Specialty Start Date End Date Aditi Constantino, TONIE [address] [place] [address] PCP - General 11/17/22 documented as of this encounter
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
--- OUTSIDE RECORDS SUMMARY | 2025-10-18 21:45 | XMS_ITS | Encounter Summary ---
Author Organization [facility] Address [address] [place] [address] Care Team Providers Care Knotting Machine Operator Portable Name Role Phone Aditi Constantino APRN Primary Care Provider [phone] Encounter Details Date Type Department Care Team (Late st Contact Info) Description 01/27/2024 Scanned Document [facility] Department of Internal Medicine [place] [address] [place] [address] Aditi Constantino APRN [address] [place] [address] Social History Tobacco Use Types Packs/Day Years [...] on filedocumented in this encounter Care Teams Knotting Machine Operator Portable Relationship Specialty Start Date End Date Aditi Constantino APRN [address] [place] [address] PCP - General 11/17/22 documented as of this encounter
--- OUTSIDE RECORDS SUMMARY | 2025-10-18 21:45 | XMS_ITS | Encounter Summary ---
Author Organization [facility] Address [address] [place] [address] Care Team Providers Care Acid Washer Operator Name Role Phone Aditi Constantino APRN Primary Care Provider [phone] Encounter Details Date Type Department Care Team (Late st Contact Info) Description 11/30/2024 Scanned Document [facility] Department of Internal Medicine [address] [place] [address] Aditi Constantino APRN [address] [place] [address] Social History Tobacco Use Types Packs/Day Years [...] on filedocumented in this encounter Care Teams Acid Washer Operator Relationship Specialty Start Date End Date Aditi Constantino APRN [address] [place] [address] PCP - General 11/17/22 documented as of this encounter
--- OUTSIDE RECORDS SUMMARY | 2025-10-18 21:45 | XMS_ITS | Clinical Summary ---
Author Organization [facility] Address [address] [place] [address] Care Team Providers Care Office Aide Name Role Phone Esau Moctezuma MD Primary Care Provider Unavailabl e Source Comments Please note that some or [...] so, obtain the minor's consent prior to disclosure.[facility] Allergies No known active allergies Active [...] patient's age to complete this topic Insurance [facility] A Care Teams Office Aide Relationship Specialty Start Date End Date Esau Moctezuma MD PCP - General 10/05/12
--- OUTSIDE RECORDS SUMMARY | 2025-10-18 21:45 | XMS_ITS | Encounter Summary ---
Author Organization [facility] Prior to 04/07/25 Address [address] [place] [address] Care Team Providers Care Hide Buyer Name Role Phone Aditi Constantino Primary Care Provider [phone] Encounter Details Date Type Department Care Team Description 01/05/2020 Records Encounter HIM OFFICE [address] [place] [id number] Provider, Not In System Social History Tobacco [...] on filedocumented in this encounter Care Teams Hide Buyer Relationship Specialty Start Date End Date Aditi Constantino [address] [place] [address] PCP - General Family Medicine 01/27/24 documented as of this encounter
--- OUTSIDE RECORDS SUMMARY | 2025-10-18 21:45 | XMS_ITS | Clinical Summary ---
Author Organization [facility] Address [address] [place] [address] Care Team Providers Care Security Professional Name Role Phone Aditi Constantino NP Primary Care Provider [phone] Surgical History Surgery Date Site/Laterality Comments URETERAL REIMPLANTION PROCEDURE:URETERAL REIMPLANTION SECTION 01/23/2020 N/A PROCEDURE: SECTION;COMMENT:Procedure: OB SECTION; Surgeon: Chucky Gruber MD; Location: [facility] DELIVERY RO[facility]; Service: Obstetrics; Laterality: N/A; APPENDECTOMY 01/28/2024 N/A PROCEDURE:APPENDECTOMY;COMMENT:Proced ure: LAPAROSCOPY APPENDECTOMY; Surgeon: Dhruv Ulloa MD; Location: [facility] SUR[facility]ERY; Service: General; Laterality: N/A; Medical History [...] Depression Screening 11/08/2024 COVID-19 Vaccine (1 - 2024-2 6 season) 2025 Influenza Vaccine (#1) 2025 RSV [...] age to complete this topic Care Teams Security Professional Relationship Specialty Start Date End Date Aditi Constantino NP [address] [place], [place] PCP - General 01/27/24
--- OUTSIDE RECORDS SUMMARY | 2025-10-18 21:45 | XMS_ITS | Encounter Summary ---
Author Organization [facility] Address [address] [place] [address] Care Team Providers Care Sld Educational Aide Name Role Phone Aditi Constantino APRN Primary Care Provider [phone] Encounter Details Date Type Department Care Team (Late st Contact Info) Description 05/08/2025 Scanned Document [facility] Department of Internal Medicine [address] [place] [address] Aditi Constantino APRN [address] [place] [address] Social History Tobacco Use Types Packs/Day Years [...] on filedocumented in this encounter Care Teams Sld Educational Aide Relationship Specialty Start Date End Date Aditi Constantino APRN [address] [place] [address] PCP - General 11/17/22 documented as of this encounter
--- OUTSIDE RECORDS SUMMARY | 2025-10-18 21:45 | XMS_ITS | Encounter Summary ---
Author Organization [facility] Address [address] [place] [address] Care Team Providers Care Pneumatic Hoist Operator Name Role Phone Aditi Constantino APRN Primary Care Provider [phone] Encounter Details Date Type Department Care Team (Late st Contact Info) Description 04/20/2025 Scanned Document [facility] Department of Internal Medicine [address] [place] [address] Aditi Constantino APRN [address] [place] [address] Social History Tobacco Use Types Packs/Day Years [...] on filedocumented in this encounter Care Teams Pneumatic Hoist Operator Relationship Specialty Start Date End Date Aditi Constantino APRN [address] [place] [id number] PCP - General 11/17/22 documented as of this encounter
--- OUTSIDE RECORDS SUMMARY | 2025-10-18 21:45 | XMS_ITS | Encounter Summary ---
Author Organization [facility] Prior to 04/07/25 Address [address] [place] [address] Care Team Providers Care Service Aide Name Role Phone Aditi Constantino Primary Care Provider [phone] Encounter Details Date Type Department Care Team Description 01/11/2020 Records Encounter HIM OFFICE [address] [place] [id number] Provider, Not In System Social History Tobacco [...] on filedocumented in this encounter Care Teams Service Aide Relationship Specialty Start Date End Date Aditi Constantino [address] [place] [address] PCP - General Family Medicine 01/27/24 documented as of this encounter
--- OUTSIDE RECORDS SUMMARY | 2025-10-18 21:45 | XMS_ITS | Clinical Summary ---
Author Organization [facility] Prior to 04/07/[address] [place] [address] Care Team Providers Care Loss Prevention Specialist Name Role Phone Aditi Constantino Primary Care Provider [phone] Allergies No known active allergies Medications Medication [...] Advance Directives For more information, please contact: [phone] Latest Code Status on File Code Status [...] way: discussion with patient . Care Teams Loss Prevention Specialist Relationship Specialty Start Date End Date Aditi Constantino [address] [place] [address] PCP - General Family Medicine 01/27/24
--- OUTSIDE RECORDS SUMMARY | 2025-10-18 21:45 | XMS_ITS | Encounter Summary ---
Author Organization [facility] Address [address] [place] [address] Care Team Providers Care General Administrator Name Role Phone Aditi Constantino APRN Primary Care Provider [phone] Encounter Details Date Type Department Care Team (Late st Contact Info) Description 02/07/2024 Scanned Document [facility] Department of Internal Medicine [place] [address] [facility] [address] [address] [place] [address] Aditi Constantino APRN [address] [place] [address] Social History Tobacco Use Types Packs/Day Years [...] on filedocumented in this encounter Care Teams General Administrator Relationship Specialty Start Date End Date Aditi Constantino APRN [address] [place] [address] PCP - General 11/17/22 documented as of this encounter
--- OUTSIDE RECORDS SUMMARY | 2025-10-18 21:45 | XMS_ITS | Clinical Summary ---
Author Organization [facility] Address [address] [place] [address] Care Team Providers Care Senior Shipping Clerk Name Role Phone Esau Moctezuma MD Primary [...] breast lump 04/25/2015 Overview (12/12/2023): Impression - [id number]: Pt. with left breast mass will obatin [...] age to complete this topic Care Teams Senior Shipping Clerk Relationship Specialty Start Date End Date Esau Moctezuma MD PCP - General 06/14/23 Esau Moctezuma MD PCP - Backup PCP Pediatrics 12/09/23
== END 2025-10-18 14:13 | disposition home or self-care (01) ==
LOC: HO.NEURO 14:12
PROVIDERS: Visit Provider Emergency Medicine
DX: R56.9 Unspecified convulsions (principal)
CPT/HCPCS: 95816

== ENCOUNTER → 2025-10-18 14:15 | Outpatient (BNV) | payer OTHER, SELFPAY | PROVIDERS: Visit Provider Psychiatry & Neurology Neurology | DX: G40.89 Other seizures (principal) | CPT/HCPCS: 95816 ==

== ENCOUNTER → 2025-10-26 09:48 | Outpatient (BNVA) | payer OTHER, SELFPAY | PROVIDERS: Visit Provider Emergency Medicine | DX: S06.0X0D Concussion without loss of consciousness, subsequent encounter (principal); W50.0XXD Accidental hit or strike by another person, subsequent encounter; R56.9 Unspecified convulsions; R20.0 Anesthesia of skin; R32 Unspecified urinary incontinence; Z91.81 History of falling | CPT/HCPCS: 99214 ==